=== PATIENT | female | born 1945 | race Caucasian/White ===

== ENCOUNTER 2021-11-11 14:34 | Outpatient (CLI) | payer MEDICARE, BC, SELFPAY ==
[2021-11-11 16:16] LABS: Chloride* 106 mmol/L (96-114)
[2021-11-11 16:17] LABS: Albumin* 4.5 g/dL (3.3-5.0); Potassium* 4.2 mmol/L (3.6-5.1); Sodium* 138 mmol/L (135-149)
[2021-11-11 16:20] LABS: Alanine Aminotransferase* 26 U/L (4-35); Alkaline Phosphatase* 88 U/L (40-150); Aspartate Amino Transferase* 50 U/L (12-35); Bilirubin Total* 0.3 mg/dL (0.1-1.5); Blood Urea Nitrogen* 20 mg/dL (7-30); Carbon Dioxide* 28 mmol/L (20-32); Creatinine* 0.8 mg/dL (0.5-1.5); Estimated Glomerular Filt Rate 77 ml/min; Glucose* 87 mg/dL (60-115); Total Protein* 7.7 g/dL (6.0-8.3)
[2021-11-11 16:21] LABS: Calcium* 9.5 mg/dL (8.4-10.6)
[2021-11-11 17:10] LABS: Vitamin B12* 741 pg/mL (243-894)
== END 2021-11-11 14:35 | disposition home or self-care (01) ==
PROVIDERS: PCP Internal Medicine; Visit Provider Internal Medicine
DX: R41.3 Other amnesia (principal); E78.5 Hyperlipidemia, unspecified; R41.89 Other symptoms and signs involving cognitive functions and awareness; M85.80 Other specified disorders of bone density and structure, unspecified site; Z13.29 Encounter for screening for other suspected endocrine disorder; Z13.21 Encounter for screening for nutritional disorder
CPT/HCPCS: 80053; 82607; 84443

== ENCOUNTER 2021-11-27 08:07 | Outpatient (CLI) | payer MEDICARE, BC, SELFPAY ==
--- OUTSIDE RECORDS SUMMARY | 2021-11-27 08:10 | XMS_ITS | Clinical Summary ---
:1945 Author Organization [facility] Address [address] [place] [address] Care Team Providers Name Role Phone Unavailable Primary Care Provider Unavailable Source Comments Patient records contain information from all sites at [facility]. For routine questions regarding patient records, call [phone] during business hours, M-F 8:00 AM - 5:00 PM Central Time. Record requests for emergency care only can be directed to [phone] at any time.[facility] Allergies No known active allergies Medications Medication Sig Dispensed Refills Start Date End Date Status alendronate (FOSAMAX) Take by mouth 1 09/20/2017 Active 35 mg tablet once a week. multivitamin tablet Take 1 tablet by 0 Active mouth daily. simvastatin (ZOCOR) 10 Take 20 mg by 0 04/19/2021 Active mg tablet mouth daily. amLODIPine (NORVASC) Take 2.5 mg by 0 04/22/2021 Active 2.5 mg tablet mouth daily. atorvastatin (LIPITOR) Take 20 mg by 0 11/13/2021 Active 20 mg tablet mouth at bedtime. Active Problems No known active problems Encounters Date Type Specialty Care Team Description 11/17/2021 Ancillary Procedure 11/17/2021 Office Visit Dermatology Cruzito Simon, Karel alvarado (Primary Dx); MFaustino. Keratosis Sebor rheic from Last 3 Months Family History Medical History Relation Name Comments Kidney cancer Brother Mike Escobar 07/2009 at 61 years old Parkinsonism Father Jv Escobar : 04/07 12; 90 years old Breast cancer Mother's Sister Mary Nascimento approx. at 80 ye ars old Basal cell carcinoma Other son Basal cell carcinoma Sister Relation Name Status Comments Brother Mike Escobar Father Jv Escobar Mother's Sister Mary Nascimento Other son Alive Sister Social History Tobacco Use Types Packs/Day Years Used Date Smoking Tobacco: Never Smokeless Tobacco: Never Alcohol Use Standard Drinks/Week Comments Yes 1 (1 standard drink = 0.6 oz pure alcoho l) Alcohol Habits Answer Date Recorded How often do you have a drink containing alcohol? Monthly or less 05/08/2021 How many drinks containing alcohol do you have on a 1 or 2 05/08/2021 typical day when you are drinking? How often do you have six or more drinks on one Never 05/08/2021 occasion? Comment: Not asked Social Isolation Answer Date Recorded In a typical week, how many times do you Twice a week 05/08/2021 talk on the phone with family, friends, or neighbors? How often do you get together with friends Twice a week 05/08/2021 or relatives? How often do you attend taoism or presybeterian More than 4 time s per year 05/08/2021 services? Do you belong to any clubs or organizations Yes 05/08/2021 such as taoism groups, unions, fraternal or athletic groups, or school groups? How often do you attend meetings of the More than 4 times pe r year 05/08/2021 clubs or organizations you belong to? Are you now , , , 05/08/2021 , never or living with a partner? Physical Activity Answer Date Recorded On average, how many days per week do you engage in moderate to 5 days 05/08/2021 strenuous exercise (like walking fast, running, jogging, dancing, swimming, biking, or other activities that cause a light or heavy sweat)? On average, how many minutes do you engage in exercise at th is 50 min 05/08/2021 level? Stress Answer Date Recorded Do you feel stress - tense, restless, nervous, or anxious, N ot at all 05/08/2021 or unable to sleep at night because your mind is troubled all the time - these days? Financial Resource Strain Answer Date Recorded How hard is it for you to pay for the very basics like Not h lalo at all 05/08/2021 food, housing, medical care, and heating? Intimate Partner Violence Answer Date Recorded Within the last year, have you been afraid of your partner o r No 05/08/2021 ex-partner? Within the last year, have you been humiliated or emotionall y No 05/08/2021 abused in other ways by your partner or ex-partner? Within the last year, have you been kicked, hit, slapped, or No 05/08/2021 otherwise physically hurt by your partner or ex-partner? Within the last year, have you been raped or forced to have any No 05/08/2021 kind of sexual activity by your partner or ex-partner? Food Insecurity Answer Date Recorded Within the past 12 months, you worried that your food would Never true 05/08/2021 run out before you got money to buy more. Within the past 12 months, the food you bought just didn't N ever true 05/08/2021 last and you didn't have money to get more. Transportation Needs Answer Date Recorded In the past 12 months, has lack of transportation kept you f rom No 05/08/2021 medical appointments or from getting medications? In the past 12 months, has lack of transportation kept you f rom No 05/08/2021 meetings, work, or getting things needed for daily living? Housing Stability Answer Date Recorded In the last 12 months, was there a time when you were not ab le No 05/08/2021 to pay the mortgage or rent on time? In the last 12 months, how many places have you lived? 1 05/08/2021 In the last 12 months, was there a time when you did not hav e a No 05/08/[address] or slept in a fpc (including now)? Education Answer Date Recorded What is the highest level of school Master's degree (e.g., M A, MS, 09/01/2019 you have completed or the highest Ralph, MEd, PACKAGER HAND, ROCIO) degree you have received? Sex Assigned at Date Recorded Female 09/01/2019 10:42 AM CDT Last Filed Vital Signs Vital Sign Reading Time Taken Comments Blood Pressure 168/86 01/13/2021 10:00 AM CDT Pulse 77 01/13/2021 10:00 AM CDT Temperature - - Respiratory Rate - - Oxygen Saturation - - Inhaled Oxygen Concentration - - Weight - - Height - - Body Mass Index - - Plan of Treatment Health Maintenance Due Date Last Done Comments Bone Density Scan (Osteoporosis 1945 Screen) CT Colonography 1945 Cologuard 1945 Colonoscopy 1945 Colorectal Cancer Surveillance 1945 Fasting Glucose for Diabetes 1945 Screening Hepatitis C Screening 1945 Mammogram 1945 Depression Screening (Annual 04/19/2021 PHQ-2) Fall Risk Screen (Annual) 04/19/2021 Influenza Vaccine (#1) 2022 12/22/2020, 12/28/2019, 01/08/2019, Additional history exists DTaP,Tdap,and Td Vaccines (2 - Td 01/12/2027 01/12/2017, or Tdap) Pneumococcal vaccine (65+ years) Completed 12/18/2014, 09/2012 Zoster Vaccines Completed 01/02/2019, 10/18/2018, 06/20/2008 COVID-19 Vaccine Completed 07/23/2021, 02/11/2021, 07/05/2020, Additional history exists Procedures Procedure Name Priority Date/Time Associated Comments Diagnosis DERMATOLOGY IMAGE Routine 11/17/2021 4:18 PM Resu lts for this EXAM CDT procedure are i n the results section. from Last 3 Months Results cheek, left upper 13-Dermatology Image Exam (11/17/2021 4:18 PM CDT) Specimen (Source) Anatomical Collection Method Collection Time Re ceived Time Location / / Volume Laterality 11/17/2021 4:16 PM CDT Narrative I[facility]S - 11/17/2021 4:18 PM CDT This order has been created and auto-finalized to support the import of images acquired without order. The clini jeison documentation to support these images can be found on the encounter deni t produced images. Provider Not In System IMG NON RAD IMAGING PROCEDUR ES Performing Organization Address City/State/ZIP Code Phon e Number IIMS IIMS NA from Last 3 Months Insurance Payer Benefit Plan / Subscriber ID Effective Phone Address T ype Group Dates MEDICARE MEDICARE A AND [id number] 2011-Pres [address] [place] [address] BLUE CROSS BCBS [place] [id number] 2016-Pres [phone] [address] Cost Share BLUE SHIELD BLUE COST 1 ent [phone] [place] [address] MEDICA MEDICA PRIME [id number] 2017-Pres [phone] [address] Cos t Share SOLUTIONS COST ent [phone] [place] [address] (Work) [phone]
--- OUTSIDE RECORDS SUMMARY | 2021-11-27 08:10 | XMS_ITS | Encounter Summary ---
:1945 Author Organization [facility] Address [address] [place] [id number] Care Team Providers Name Role Phone Unavailable Primary Care Provider Unavailable Encounter Details Date Type Department Care Team Description 11/17/2021 Ancillary Procedure Department of Dermatology Social History Tobacco Use Types Packs/Day Years [...] or relatives? How often do you attend latter day or christianity More than 4 time s per year 05/08/2021 services? Do you belong to any clubs or organizations Yes 05/08/2021 such as latter day groups, unions, fraternal or athletic groups, or [...] minutes do you engage in exercise at is 50 min 05/08/2021 level? Stress Answer [...] place to sleep or slept in a detention (including now)? Education Answer Date Recorded What is the highest level of school Master's degree (e.g., M A, MS, 09/01/2019 you have completed or the highest Ralph, MEd, GLUE MOUNTER OPERATOR, ROCIO) degree you have received? Sex Assigned at Date Recorded Female 09/01/2019 10:42 AM CDT documented as of this encounter Plan of Treatment Not on filedocumented as of this encounter Procedures Procedure Name Priority Date/Time Associated Comments Diagnosis DERMATOLOGY IMAGE Routine 11/17/2021 4:18 PM Resu lts for this EXAM CDT procedure are i n the results section. documented in this encounter Results cheek, left upper 13-Dermatology Image Exam [...] Code Phon e Number IIMS IIMS NA documented in this encounter Visit Diagnoses Not on filedocumented in this encounter
--- OUTSIDE RECORDS SUMMARY | 2021-11-27 08:11 | XMS_ITS | Encounter Summary ---
:1945 Author Organization [facility] Address [address] [place] [address] Care Team Providers Name Role Phone Unavailable Primary Care Provider Unavailable Encounter Details Date Type Department Care Team Description 11/29/2020 Orders Only Department of Sidney Rice, Squamous Cell Dermatology in M.D. Carcinoma Skin Other [place], [place] [address] [facility] Face (Primary [address] [place], [place] Dx) [place] [id number] [phone] Social History Tobacco Use Types Packs/Day Years [...] or relatives? How often do you attend gnosticism or anabaptist More than 4 time s per year 05/08/2021 services? Do you belong to any clubs or organizations Yes 05/08/2021 such as gnosticism groups, unions, fraternal or athletic groups, or school groups? How often do you attend meetings of the More than 4 times pe magdiel year 05/08/2021 clubs or organizations you belong [...] place to sleep or slept in a [place] [facility] [place] (including now)? Education Answer Date Recorded What is the highest level of school Master's degree (e.g., M A, MS, 09/01/2019 you have completed or the highest Ralph, MEd, ELECTRICAL ASSEMBLER, ROCIO) degree you have received? Sex Assigned at Date Recorded Female 09/01/2019 10:42 AM CDT documented as of this encounter Plan of Treatment Not on filedocumented as of this encounter Results SARS Coronavirus-2 RNA, V Asymptomatic (01/10/2021 1:13 PM CDT) [facility] Method Time Signature SARS-CoV-2 Swab, 01/11/2021 MKTO Specimen Nasopharynx 2:34 AM CDT Source SARS CoV-2 Undetected Undetected 01/11/2021 MKTO RNA, TMA 2:34 AM CDT Comment: SARS-CoV-2 RNA absent. This result does not rule out COVID-19 in the patient, as the sensitivity of the test depends o n the timing of the specimen collection and the quality of the specim en. Result should be correlated with patient's history and clinical presentat ion. ----ADDITIONAL INFORMATION---- This molecular amplification test was pe rformed using the Aptima SARS-CoV-2 assay ([employer] on the [employer] tem under emergency use authorization (EUA) by the U.S. Food and Drug Administ ration. Fact sheets for this EUA assay can be fo und at the following links: For Healthcare Providers: https://www.fd a.gov/media/417560/download For Patients: https://www.fda.gov/media/ 393517/download Specimen Anatomical Collection Method Collection Time Receive d Time (Source) Location / / Volume Laterality Varies 01/10/2021 1:13 PM 09/24/202 1 7:38 (Nasopharynx) CDT PM CDT Sidney Rice M.D. 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
--- OUTSIDE RECORDS SUMMARY | 2021-11-27 08:11 | XMS_ITS | Encounter Summary ---
:1945 Author Organization [facility] Address [address] [place] [address] Care Team Providers Name Role Phone Unavailable Primary Care Provider Unavailable Reason for Visit Reason Comments Skin Check Outpatient (Routine) - Closed Specialty Diagnoses / Procedures Referred By Contact Refer red To Contact Dermatology Cruzito Simon M.D . [facility] Region [address] [place] [phone] Referral ID Status Reason Start Date Expiration Date Visits Requ ested Visits Authorized [id number] Closed 09/05/2019 09/04/2020 1 1 Encounter Details Date Type Department Care Team Description 12/18/2019 Office Visit Department of Cruzito Simon, Keratosis Seborrheic (Primary Dx); Dermatology in [place] Nevi Multiple; [place], [place] [address] [place] [address] Keratosis Actinic; [address] [place] [address] [place] [phone] Social History Tobacco Use Types Packs/Day Years [...] or relatives? How often do you attend cheondoism or temple More than 4 time s per year 05/08/2021 services? Do you belong to any clubs or organizations Yes 05/08/2021 such as cheondoism groups, unions, fraternal or athletic groups, or [...] place to sleep or slept in a long-term (including now)? Education Answer Date Recorded What is the highest level of school Master's degree (e.g., M A, MS, 09/01/2019 you have completed or the highest Ralph, MEd, MAKE UP GIRL, ROCIO) degree you have received? Sex Assigned at Date Recorded Female 09/01/2019 10:42 AM CDT documented as of this encounter Progress Notes Cruzito Simon M.D. - 12/18/2019 8:15 AM CDT SUBJECTIVE CHIEF COMPLAINT / REASON FOR VISIT Skin cancer screening exam Recheck of dermal nevus involving the left upper sharonda lip HISTORY OF PRESENT ILLNESS Ms. Susie Suarez is a 74 y.o. female who presents today for a full skin cancer screening examination and a recheck of dermal nevus. On her last visit with me on 09/05/19 we followed up with a recheck of a dermal nevus involving the left upper sharonda border which I suspected was benign but witha low suspicion for a basal cell carcinoma. She reports no changes in this lesion since the last visit .The patient denies a personal history of skin cancer. She does have history of her sister with melanoma and father with non melanoma skin cancer. She reports regular use of sunscreen. No Known Allergies MEDICAL HISTORY No history of skin cancer FAMILY HISTORY 1. Sister with history of melanoma 2. Father with history of non melanoma skin cancer, probable bcc OBJECTIVE PHYSICAL EXAMINATION General: Awake, alert, in no acute distress, and with appropriate affect. Eyes: No scleral injection or icterus. No eyelid abnormalities. Lymph: No lower extremity edema. Skin: I have examined the scalp, face, neck, chest, abdomen, back, bilateral upper extremities, and bilateral lower extremities. My scribe Abril was present for the full exam today. Examination of the right forehead reveals 2 AKs.Examination of the right crooks reveals an irritated LK. Examination of area above the left lip reveals a 4 x 3 mm flesh colored, to light brown nevus with ahair growing out of it compatible with a benign dermal nevus. Examination of face, trunk, and extremities reveals multiple benign appearing nevi and lentigines and several Sks, to a greater extent on trunk than extremities. ASSESSMENT / PLAN #1 Right forehead: Multiple actinic keratosis x 2 lesions Given the precancerous nature of this lesion(s), treatment is medically indicated. After discussion of the risks, benefits and alternatives to treatment with cryotherapy, informed consent was obtained.We treated a total of 2 lesion(s) with two 5-10-second freeze-thaw cycles of liquid nitrogen cryother apy. The patient tolerated the procedure well. Aftercare instructions were provided in written and verbal form to the patient. Should any of these lesions recur, the patient should return for biopsy orfurther evaluation. Discussed the risks, benefits, alternatives, and the necessity of other members of the healthcare team participating in the procedure. All questions answered and consent given. #2 Right crooks: Irritated lichenoid keratosis Due to the irritated nature of this lesion I recommended further treatment with cryotherapy and she agreed to proceed. After explaining the procedure, discussing the associated risks, benefits, and alternatives, and obtaining verbal informed consent, the lesion(s) underwent treatment with cryotherapy in the standard fashion.We treated a total of 1 lesion(s) with two 5-10 second freeze-thaw cycles of liquid nitrogen cry otherapy. The patient tolerated the procedure well. Aftercare instructions were provided in written and verbal form to the patient. Should any of these lesions recur, the patient should return for biopsy or further evaluation. Discussed the risks, benefits, alternatives, and the necessity of other members of the healthcare team participating in the procedure. All questions answered and consent given. Patient offered educational materials. Follow-up immediately if changes occur during monthly self-skin exam. Otherwise follow up in 6-12 months. #3 Face, trunk, and extremities: Multiple benign appearing nevi and lentigines The ABCDE criteria for melanoma was reviewed with the patient. None of the patient's nevi reach the clinical threshold for biopsy. I recommend continued sun protection, self-skin examinations, and observation. Should any of the patient's nevi change in size, color, texture, or shape or develop symptoms such as itching or bleeding, I recommend an immediate return visit for reassessment. #4 Face, trunk, and extremities, to a greater extent the trunk: Seborrheic keratosis The benign nature of the skin lesion(s) was discussed with the patient. No treatment is required. I recommend continued observation. Should symptoms or changes develop related to this condition, I would recommend a return visit for reassessment. PATIENT EDUCATION: Ready to learn. No apparent learning barriers were identified. Learning preferences include listening. Explained diagnosis and treatment plan; patient/guardian of patient expressed understanding of thecontent. By signing my name below, I, Carrie Waldron, attest that this documentation has been prepared underthe direction and in the presence of Cruzito Simon M.D. Electronically Signed: ethel Arellano. 12/18/2019. At 0837 . I, Cruzito Simon M.D., personally performed the services described in this documentation. All medical record entries made by the scribe were at my direction and in my presence. I have reviewed the chart and discharge instructions (if applicable) and agree that the record reflects my personal performance and is accurate and complete. Cruzito Simon M.D. 12/18/2019. documented in this encounter Plan of Treatment Not on filedocumented as of this encounter Visit Diagnoses Diagnosis Keratosis Seborrheic - Primary Nevi Multiple Keratosis Actinic Keratosis Lichenoid documented in this encounter
--- OUTSIDE RECORDS SUMMARY | 2021-11-27 08:11 | XMS_ITS | Encounter Summary ---
:1945 Author Organization [facility] Address [address] [place] [address] Care Team Providers Name Role Phone Unavailable Primary Care Provider Unavailable Encounter Details Date Type Department Care Team Description 01/10/2021 Lab Department of [facility] Sidney Rice Sq uamous Cell Carcinoma [facility], in [address] [phone] [place] [address] [facility] [phone] Social History Tobacco Use Types Packs/Day Years [...] or relatives? How often do you attend judaism or druze More than 4 time s per year 05/08/2021 services? Do you belong to any clubs or organizations Yes 05/08/2021 such as judaism groups, unions, fraternal or athletic groups, or [...] place to sleep or slept in a fdc (including now)? Education Answer Date Recorded What is the highest level of school Master's degree (e.g., M A, MS, 09/01/2019 you have completed or the highest Ralph, MEd, CENTRAL SUPPLY NURSE, ROCIO) degree you have received? Sex Assigned at Date Recorded Female 09/01/2019 10:42 AM CDT documented as of this encounter Plan of Treatment Not on filedocumented as of this encounter Procedures Procedure Name Priority Date/Time Associated Diagnosis Comme nts SARS CORONAVIRUS-2 Routine 01/10/2021 1:13 PM Squamous Cell Re sults for this RNA, V CDT Carcinoma Skin Other procedu re are in Parts Face the results section. documented in this encounter Results SARS Coronavirus-2 RNA, V Asymptomatic (01/10/2021 1:13 PM CDT) [facility] Method Time Signature SARS-CoV-2 Swab, 01/11/2021 MKTO [...] pe rformed using the Aptima SARS-CoV-2 assay ([employer] on the [employer] tem under emergency use authorization (EUA) by the U.S. Food and Drug Administ ration. Fact sheets for this EUA assay can be fo und at the following links: For Healthcare Providers: https://www.fd a.gov/media/692398/download For Patients: https://www.fda.gov/media/ 978080/download Specimen Anatomical Collection Method Collection Time Receive d Time (Source) Location / / Volume Laterality Varies 01/10/2021 1:13 PM 7:38 (Nasopharynx) CDT PM CDT Sidney Rice M.D. LAB MICROBIOLOGY - GENERAL O RDERABLES Performing Organization Address City/State/[facility] Phon e Number [facility]- [address] [place] [address] [place] [address] System [address] documented in this encounter Visit Diagnoses Diagnosis Squamous Cell Carcinoma Skin Other Parts Face documented in this encounter Additional Health Concerns Infection Onset Date Last Indicated Resolved Time COVID19 Pending 01/09/2021 01/10/2021 01/11/2021 2:35 AM CDT documented as of this encounter
--- OUTSIDE RECORDS SUMMARY | 2021-11-27 08:11 | XMS_ITS | Encounter Summary ---
:1945 Author Organization [facility] Address [address] [place] [address] Care Team Providers Name Role Phone Unavailable Primary Care Provider Unavailable Reason for Referral Outpatient (Routine) - Closed Specialty Diagnoses / Procedures Referred By Contact Refer red To Contact Dermatology Diagnoses Squamous Cell Carcinoma In Situ Cruzito Simon M.D. [facility] Procedures [facility] 1-4 sites [address] [place] [address] [phone] Referral ID Status Reason Start Date Expiration Date Visits Requ ested Visits Authorized [id number] Closed 11/25/2020 11/25/2021 1 1 Encounter Details Date Type Department Care Team Description 11/25/2020 Orders Only Department of Cruzito Simon Encounter For Preprocedural Laboratory Examination (COVID-19) (Primary Dx); Dermatology ashanti Alegria M.D. Squamous Cell Carcinoma In Situ; [place], [place] [address] [place] [address] Contact With And (Suspected) Exposure To COVID-[address] [place] [phone] Social History Tobacco Use Types Packs/Day Years [...] or relatives? How often do you attend caodaism or yazidism More than 4 time s per year 05/08/2021 services? Do you belong to any clubs or organizations Yes 05/08/2021 such as caodaism groups, unions, fraternal or athletic groups, or [...] place to sleep or slept in a usp (including now)? Education Answer Date Recorded What is the highest level of school Master's degree (e.g., M A, MS, 09/01/2019 you have completed or the highest Ralph, MEd, DIRECTOR GEOPHYSICAL LABORATORY, ROCIO) degree you have received? Sex Assigned at Date Recorded Female 09/01/2019 10:42 AM CDT documented as of this encounter Plan of Treatment Scheduled Orders Name Type Priority Associated Diagnoses Order S noel [facility] 1-4 sites Dermatology Routine Squamous Cell Carcinom a Expected: 12/09/2020, In Situ Expires: 2023 documented as of this encounter Visit Diagnoses Diagnosis Encounter For Preprocedural Laboratory E xamination (COVID-19) - Primary Squamous Cell Carcinoma In Situ Contact With And (Suspected) Exposure To COVID-19 documented in this encounter
--- OUTSIDE RECORDS SUMMARY | 2021-11-27 08:11 | XMS_ITS | Encounter Summary ---
:1945 Author Organization [facility] Address [address] [place] [address] Care Team Providers Name Role Phone Unavailable Primary Care Provider Unavailable Encounter Details Date Type Department Care Team Description 01/13/2021 Ancillary Procedure Department of Dermatology Social History [...] or relatives? How often do you attend yazdanism or restorationism More than 4 time s per year 05/08/2021 services? Do you belong to any clubs or organizations Yes 05/08/2021 such as yazdanism groups, unions, fraternal or athletic groups, or [...] level of school Master's degree (e.g., M Disha, MS, 09/01/2019 you have completed or the highest Ralph, MEd, MANAGER TRAINING, ROCIO) degree you have received? Sex Assigned at Date Recorded Female 09/01/2019 10:42 AM CDT documented as of this encounter Plan of Treatment Not on filedocumented as of this encounter Procedures Procedure Name Priority Date/Time Associated Comments Diagnosis DERMATOLOGY IMAGE Routine 01/13/2021 11:44 Result s for this EXAM AM CDT procedure are i n the results section. documented in this encounter Results Forehead, right 8 Mohs micrographic surgery-Dermatology Image Exam (01/13/2021 11:44 AM CDT) Specimen (Source) Anatomical Collection Method Collection Time Re ceived Time Location / / Volume Laterality 01/13/2021 12:00 PM CDT Narrative [facility] - 01/13/2021 11:44 AM CDT This order has been created and [...]
--- OUTSIDE RECORDS SUMMARY | 2021-11-27 08:11 | XMS_ITS | Encounter Summary ---
:1945 Author Organization [facility] Address [address] [place] [address] Care Team Providers Name Role Phone Unavailable Primary Care Provider Unavailable Reason for Referral Outpatient (Routine) - Closed Specialty Diagnoses / Procedures Referred By Contact Refer red To Contact Dermatology Cruzito Simon M.D . [facility] Region [address] [place] [phone] Referral ID Status Reason Start Date Expiration Date Visits Requ ested Visits Authorized [id number] Closed 06/20/2019 06/19/2020 1 1 Scheduling Instructions Return for potential shave biopsy lip July 17 1:00 p.m. SPORTATION AID Reason for Visit Reason Comments Skin Check Appointment Request (Routine) - Closed Specialty Diagnoses / Procedures Referred By Contact Refer red To Contact Dermatology Referral ID Status Reason Start Date Expiration Date Visits Requ ested Visits Authorized [id number] Closed 12/21/2018 12/21/2019 1 Encounter Details Date Type Department Care Team Description 06/20/2019 Office Visit Department of Cruzito Simon Nevi Multi ple (Primary Dx); Dermatology in [place], [place] [address] [place] [phone] Social History Tobacco Use Types Packs/Day Years Used Date Smoking Tobacco: Never Smokeless Tobacco: Never Alcohol Habits Answer Date Recorded How often [...] or relatives? How often do you attend gnosticist or catholic More than 4 time s per year 05/08/2021 services? Do you belong to any clubs or organizations Yes 05/08/2021 such as gnosticist groups, unions, [email or web address] or athletic groups, or school groups? How [...] place to sleep or slept in a fci (including now)? Sex Assigned at Date Recorded Female 09/01/2019 10:42 AM CDT documented as of this encounter Progress Notes Cruzito Simon M.D. - 06/20/2019 3:00 PM CST SUBJECTIVE CHIEF COMPLAINT/REASON FOR VISIT Recheck nevi involving left upper posterior thigh and left lateral thigh HISTORY OF PRESENT ILLNESS Susie Suarez is a 73 y.o. female who presents for a recheck of nevi involving the left upper posterior thigh and left lateral thigh. These lesions have been non-changing and asymptomatic. The patient denies a personal history of skin cancer or family history for melanoma. She uses sunscreen. She has no other concerns today. No Known Allergies MEDICAL HISTORY Negative for skin cancer FAMILY HISTORY Negative for melanoma OBJECTIVE PHYSICAL EXAMINATION General: Awake, alert, in no acute distress, and with appropriate affect. Skin: Examination of the left upper posterior thigh reveals a 5 mm x 3 mm brown nevus with slight asymmetry . Examination of the left lateral thigh reveals a 4 mm x 3.5 mm brown nevus with slight asymmetry. Examination of the left upper lip (sharonda border) reveals a 4 mm x 3 mm skin-colored to slightly shiny papule with some telangiectasia, likely representing a dermal nevus although cannot completely exclude a basal cell carcinoma. The patient thinks this lesion has been present for a long timebut is unsure. ASSESSMENT/PLAN #1 Left upper posterior thigh and left lateral thigh: Benign nevi The ABCDE criteria for melanoma was reviewed with the patient. These nevi do not reach the clinical threshold for biopsy. I recommend continued sun protection, self-skin examinations, and observation. Should these nevi change in size, color, texture, or shape or develop symptoms such as itching or bleeding, I recommend an immediate return visit for reassessment. Follow up in 3 months for a full skin cancer screening, or immediately if any new or changing lesions are noted. #2 Left upper lip (sharonda border): Probable dermal nevus, cannot exclude basal cell carcinoma On clinical exam, the lesion involving the left upper lip (sharonda border) likely represents a dermal nevus although I cannot entirely exclude a basal cell carcinoma. The patient thinks this lesion has been present for a long time but is unsure. I have asked her to review previous family photos that she has at home to verify. I advised a return to the procedure clinic on 07/18/19 for recheck of thestated lesion and a potential biopsy only if indicated after review of her home photos. Photographs were taken today with the patient's verbal consent. PATIENT EDUCATION: Ready to learn. No apparent learning barriers were identified. Learning preferences include listening. Explained diagnosis and treatment plan; patient/guardian of patient expressed understanding of thecontent. By signing my name below, I, Jose L Shahid, attest that this documentation has been prepared under thedirection and in the presence of Cruzito Simon M.D. Electronically Signed: ethel Mariano. 06/20/2019. 3:18 PM TRANSPORTATION AID. Cruzito Tobias M.D., personally performed the services described in this documentation. All medical record entries made by the scribe were at my direction and in my presence. I have reviewed the chart and discharge instructions (if applicable) and agree that the record reflects my personal performance and is accurate and complete. Cruzito Simon M.D. . 06/20/2019. 5:07 PM TRANSPORTATION AID. SPORTATION AID documented in this encounter Plan of Treatment Scheduled Referrals Name Type Priority Associated Order Schedule Diagnoses Dermatology office Outpatient Referral Routine Ex pected: visit (clinic) 07/18/2019 (Approximate), Expires: 06/19/2022 documented as of this encounter Visit Diagnoses Diagnosis Nevi Multiple - Primary Nevus Dermal documented in this encounter
--- OUTSIDE RECORDS SUMMARY | 2021-11-27 08:11 | XMS_ITS | Encounter Summary ---
:1945 Author Organization [facility] Address [address] [place] [address] Care Team Providers Name Role Phone Unavailable Primary Care Provider Unavailable Reason for Referral Outpatient (Routine) - Closed Specialty Diagnoses / Procedures Referred By Contact Refer red To Contact Dermatology Cruzito Simon M.D . [facility] Region [address] [place] [phone] Referral ID Status Reason Start Date Expiration Date Visits Requ ested Visits Authorized [id number] Closed 01/30/2020 01/29/2021 1 1 Scheduling Instructions Recheck lip lesion and potential biopsy March 26, 11:15 a.m. Reason for Visit Reason Comments Suspicious Skin Lesion Encounter Details Date Type Department Care Team Description 01/30/2020 Office Visit Department of Dermatology Cruzito Simon , Nevus (Primary Dx) in [place] M.D. [address] [phone] Social History Tobacco Use Types Packs/Day Years [...] or relatives? How often do you attend mu-ism or jain More than 4 time s per year 05/08/2021 services? Do you belong to any clubs or organizations Yes 05/08/2021 such as mu-ism groups, unions, fraternal or athletic groups, or [...] place to sleep or slept in a senior care (including now)? Education Answer Date Recorded What is the highest level of school Master's degree (e.g., M Disha, MS, 09/01/2019 you have completed or the highest Ralph, MEd, BLACKSMITH HAMMER OPERATOR, ROCIO) degree you have received? Sex Assigned at Date Recorded Female 09/01/2019 10:42 AM CDT documented as of this encounter Progress Notes Cruzito Simon M.D. - 01/30/2020 10:30 AM CDT SUBJECTIVE CHIEF COMPLAINT / REASON FOR VISIT Skin lesion HISTORY OF PRESENT ILLNESS Ms. Susie Suarez is a 74 y.o. female who presents today for evaluation of a skin lesion involving the left lip. The patient denies a history of skin cancer but does have a sister with a history ofmelanoma and father with a history of non melanoma skin cancer. Today she states that the lesion involving the left lip has been present for about a year. Since thelast visit to dermatology clinic on 12/18/2019, she notices that the lesion has been increasingly dry and scaly. No Known Allergies MEDICAL HISTORY No history of skin cancer FAMILY HISTORY 1. Sister with history of melanoma 2. Father with history of non melanoma skin cancer, probable bcc OBJECTIVE PHYSICAL EXAMINATION General: Awake, alert, in no acute distress, and with appropriate affect. Skin: Limited skin exam done today. Examination of the skin just above the left sharonda border involving the left upper central lip area reveals a 3.5 x 3.5 mm skin colored to slightly pink papule with focal crust compatible with a dermal nevus that is irritated. Dermoscopy reveals comma shaped vessels also compatible with a dermal nevus. ASSESSMENT / PLAN #1 Skin above left central sharonda border (left upper cutaneous lip, central): Irritated dermal nevus Photographs taken today including clinical and dermoscopy photos. My index for suspicion for basal cell carcinoma is very low on clinical exam and dermoscopy today. Will continue to monitor clinically.For the crusting on the lip apply Vaseline to the area twice daily. Follow-up immediately if changesoccur during monthly self-skin exam. Otherwise follow up in 2 months. PATIENT EDUCATION: Ready to learn. No apparent learning barriers were identified. Learning preferences include listening. Explained diagnosis and treatment plan; patient/guardian of patient expressed understanding of thecontent. By signing my name below, I, Carrie Waldron, attest that this documentation has been prepared underthe direction and in the presence of Cruzito Simon M.D. Electronically Signed: ethel Arellano. 01/29. ICruzito M.D., personally performed the services described in this documentation. All medical record entries made by the scribe were at my direction and in my presence. I have reviewed the chart and discharge instructions (if applicable) and agree that the record reflects my personal performance and is accurate and complete. Cruzito Simon M.D. 01/29. documented in this encounter Plan of Treatment Scheduled Referrals Name Type Priority Associated Order Schedule Diagnoses Dermatology office Outpatient Referral Routine Ex pected: visit (clinic) 03/26/2020 (Approximate), Expires: 01/29/2023 documented as of this encounter Visit Diagnoses Diagnosis Nevus - Primary documented in this encounter
--- OUTSIDE RECORDS SUMMARY | 2021-11-27 08:11 | XMS_ITS | Encounter Summary ---
:1945 Author Organization [facility] Address [address] [place] [address] Care Team Providers Name Role Phone Unavailable Primary Care Provider Unavailable Reason for Referral Outpatient (Routine) - Closed Specialty Diagnoses / Procedures Referred By Contact Refer red To Contact Dermatology Cruzito Simon M.D . [facility] Region [address] [place] [address] [phone] Referral ID Status Reason Start Date Expiration Date Visits Requ ested Visits Authorized [id number] Closed 09/05/2019 09/04/2020 1 1 Scheduling Instructions Please schedule for skin cancer screenin g exam sometime in December 2019. Reason for Visit Reason Comments Follow-up Outpatient (Routine) - Closed Specialty Diagnoses / Procedures Referred By Contact Refer red To Contact Dermatology Cruzito Simon M.D . [facility] Region [address] [place] [phone] Referral ID Status Reason Start Date Expiration Date Visits Requ ested Visits Authorized [id number] Closed 06/20/2019 06/19/2020 1 1 Encounter Details Date Type Department Care Team Description 09/05/2019 Office Visit Department of Cruzito Simon Nevus Derm al (Primary Dermatology in [place] ) [address] [phone] Social History Tobacco Use Types Packs/Day Years [...] or relatives? How often do you attend roman catholic or gnosticist More than 4 time s per year 05/08/2021 services? Do you belong to any clubs or organizations Yes 05/08/2021 such as roman catholic groups, unions, fraternal or athletic groups, or [...] place to sleep or slept in a chcf (including now)? Education Answer Date Recorded What is the highest level of school Master's degree (e.g., M A, MS, 09/01/2019 you have completed or the highest Ralph, MEd, TRAFFIC OR SYSTEM DISPATCHER, ROCIO) degree you have received? Sex Assigned at Date Recorded Female 09/01/2019 10:42 AM CDT documented as of this encounter Consult Notes Cruzito Simon M.D. - 09/05/2019 8:45 AM CDT SUBJECTIVE CHIEF COMPLAINT / REASON FOR VISIT Skin lesion HISTORY OF PRESENT ILLNESS Ms. Susie Suarez is a 74 y.o. female who presents today for evaluation of a skin lesion involving the skin just above the left upper lip vermilion border. This lesion has been present for at least3 years that she found a photograph from where it was present and has not changed. We felt that it most likely represented a benign dermal nevus. She denies any bleeding or itching. The patientdenies a history of skin cancer. No Known Allergies MEDICAL HISTORY No history of skin cancer FAMILY HISTORY No family history for melanoma OBJECTIVE PHYSICAL EXAMINATION General: Awake, alert, in no acute distress, and with appropriate affect. Skin: Limited skin exam done today. Examination of the skin above the left upper lip vermilion border is a for by 3 mm slightly fernandes brown to skin colored papule with focal telangiectasia a a that is compatible on clinical exam and dermoscopy for a dermal nevus. ASSESSMENT / PLAN #1 Left upper lip vermilion border: Dermal nevus I discussed with her today that this lesion looks like a benign dermal nevus both clinically as wellas dermoscopy and has not changed for 3-4 years according to her. We discussed that these can sometimes mimic a basal cell carcinoma but my index of suspicion for this being a basal cell carcinoma is very low and I do not feel that a biopsy which would result in a scar is warranted at this time. She is in complete agreement with this approach. She will follow up in 4 months for recheck of this area as well as a full skin cancer screening exam as she will be due at that time. All questions answered. PATIENT EDUCATION: Ready to learn. No apparent learning barriers were identified. Learning preferences include listening. Explained diagnosis and treatment plan; patient/guardian of patient expressed understanding of thecontent. documented in this encounter Plan of Treatment Scheduled Referrals Name Type Priority Associated Order Schedule Diagnoses Dermatology office Outpatient Referral Routine Ex pected: visit (clinic) 01/15/2020 (Approximate), Expires: 09/04/2022 documented as of this encounter Visit Diagnoses Diagnosis Nevus Dermal - Primary documented in this encounter
--- OUTSIDE RECORDS SUMMARY | 2021-11-27 08:11 | XMS_ITS | Encounter Summary ---
:1945 Author Organization [facility] Address [address] [place] [phone] Care Team Providers Name Role Phone Unavailable Primary Care Provider Unavailable Encounter Details Date Type Department Care Team Description 08/22/2018 Ancillary Procedure Department of Dermatology Social History [...] or relatives? How often do you attend jewish or oriental orthodox More than 4 time s per year 05/08/2021 services? Do you belong to any clubs or organizations Yes 05/08/2021 such as jewish groups, unions, fraternal or athletic groups, or [...] place to sleep or slept in a correction (including now)? Sex Assigned at Date Recorded Female 09/01/2019 10:42 AM CDT documented as of this encounter Plan of Treatment Not on filedocumented as of this encounter Procedures Procedure Name Priority Date/Time Associated Comments Diagnosis DERMATOLOGY IMAGE Routine 08/22/2018 1:05 PM Resu lts for this EXAM CDT procedure are i n the results section. documented in this encounter Results lower extremity, left posterior thigh 409-Dermatology Image Exam (08/22/2018 1:05 PM CDT) Specimen (Source) Anatomical Collection Method Collection Time Re ceived Time Location / / Volume Laterality 08/22/2018 1:03 PM CDT Narrative [facility] - 08/22/2018 1:12 PM CDT This order has been created [...]
--- OUTSIDE RECORDS SUMMARY | 2021-11-27 08:11 | XMS_ITS | Encounter Summary ---
:1945 Author Organization [facility] Address [address] [place] [address] Care Team Providers Name Role Phone Unavailable Primary Care Provider Unavailable Reason for Visit Reason Comments Skin Check Appointment Request (Routine) - Closed Specialty Diagnoses / Procedures Referred By Contact Refer red To Contact Family Medicine Referral ID Status Reason Start Date Expiration Date Visits Requ ested Visits Authorized [id number] Closed 06/22/2018 06/22/2019 1 Encounter Details Date Type Department Care Team Description 12/20/2018 Office Visit Department of Cruzito Simon Nevi Multi ple (Primary Dx); Dermatology in [place], [place] [address] [place] [phone] Social History Tobacco Use Types Packs/Day Years [...] How often do you attend caodaism or druze More than 4 time s per year 05/08/2021 services? Do you belong to any clubs or organizations Yes 05/08/2021 such as caodaism groups, unions, fraternal or athletic groups, or school groups? How often do you attend meetings of the More than 4 times r year 05/08/2021 clubs or organizations you [...] place to sleep or slept in a halfway (including now)? Sex Assigned at Date Recorded Female 09/01/2019 10:42 AM CDT documented as of this encounter Progress Notes Cruzito Simon M.D. - 12/20/2018 2:00 PM CDT CHIEF COMPLAINT Skin cancer screening exam HISTORY OF THE PRESENT ILLNESS Susie Suarez is a pleasant 73 y.o. female who presents for a skin cancer screening exam. We have been monitoring two lesions involving the left upper posterior thigh and left lateral thigh since the initial consultation on 12/21/17. These were attributed to be benign nevi per previous clinical examand dermoscopy.The patient denies personal history of skin cancer or family history for melanoma. She uses sunscreen regularly. No new areas of concern today. PAST MEDICAL HISTORY No history of skin cancer FAMILY HISTORY No family history of melanoma PHYSICAL EXAM General: Awake, alert, in no acute distress, and with appropriate affect. Eyes: No scleral injection or icterus. No eyelid abnormalities. Lymph: No lower extremity edema. Skin: I have examined the scalp, face, neck, chest, abdomen, back, bilateral upper extremities, and bilateral lower extremities. Examination of the face reveals multiple benign-appearing nevi and seborrheic keratoses. Examination of the upper and lower extremities reveals multiple benign-appearing nevi and seborrheic keratoses. Examination of the right lateral big toe reveals a 5.5 mm x 3.5 mm uniformly pigmented brown benign-appearing nevus. Examination of the left upper posterior thigh 5 mm x 3 mmbrown nevus with slight irregular pigmentation, though benign-appearing by clinical exam and dermoscopy. Examination of the left lateral thigh reveals a 4 mm x 3.5 mm benign-appearing nevus with slightasymmetry. No suspicious lesions for skin cancer today. IMPRESSION AND PLAN #1 Face, trunk and extremities: Multiple nevi ?? The ABCDE criteria for melanoma was reviewed with the patient. None of the patient's nevi reach the clinical threshold for biopsy. We will continue monitoring the nevi involving the left upper posterior thigh and left lateral thigh. I recommend continued sun protection, self-skin examinations, and obse rvation. Should any of the patient's nevi change in size, color, texture, or shape or develop symptoms such as itching or bleeding, I recommend an immediate return visit for reassessment. Otherwise return in 6 months for recheck of her nevi discussed above. #2 Face, trunk and extremities: Seborrheic keratoses The benign nature of the skin lesion(s) was discussed with the patient. No treatment is required. I recommend continued observation. Should symptoms or changes develop related to this condition, I would recommend a return visit for reassessment. PATIENT EDUCATION Ready to learn. No apparent learning barriers were identified. Learning preferences include listening. Explained diagnosis and treatment plan; patient/guardian of patient expressed understanding of thecontent. By signing my name below, I, Jose L Shahid, attest that this documentation has been prepared under thedirection and in the presence of Cruzito Simon M.D. Electronically Signed: ethel Mariano. 12/20/2018. 2:10 PM. I, Cruzito Simon M.D., personally performed the services described in this documentation. All medical record entries made by the scribe were at my direction and in my presence. I have reviewed the chart and discharge instructions (if applicable) and agree that the record reflects my personal performance and is accurate and complete. Cruzito Simon M.D. . 12/20/2018. 3:48 PM. documented in this encounter Plan of Treatment Not on filedocumented as of this encounter Visit Diagnoses Diagnosis Nevi Multiple - Primary Keratosis Seborrheic documented in this encounter
--- OUTSIDE RECORDS SUMMARY | 2021-11-27 08:11 | XMS_ITS | Encounter Summary ---
:1945 Author Organization [facility] Address [address] [place] [address] Care Team Providers Name Role Phone Unavailable Primary Care Provider Unavailable Encounter Details Date Type Department Care Team Description 11/29/2020 Clinical Communication Department of Falguni Gibson Dermatology in , [place], [place] [address] [facility] [address] [place] [phone] Social History Tobacco Use Types Packs/Day Years [...] or relatives? How often do you attend orthodoxy or presybeterian More than 4 time s per year 05/08/2021 services? Do you belong to any clubs or organizations Yes 05/08/2021 such as orthodoxy groups, unions, fraternal or athletic groups, or [...] place to sleep or slept in a half-way (including now)? Education Answer Date Recorded What is the highest level of school Master's degree (e.g., M A, MS, 09/01/2019 you have completed or the highest Ralph, MEd, HOISTING ENGINE OPERATOR, ROCIO) degree you have received? Sex Assigned at Date Recorded Female 09/01/2019 10:42 AM CDT documented as of this encounter Miscellaneous Notes Telephone Encounter - Michelle Morales - 11/29/2020 11:54 AM CDT ----- Message from Falguni Gibson R.N. sent at 11/29/2020 10:53 AM CDT ----- Regarding: RE: Right forehead SCC HI Michelle, This is pretty superficial. Please offer her first available. Thank you, Falguni ----- Message ----- From: Michelle Morales Sent: 11/29/2020 9:58 AM CDT To: Dai Pererat Sunil Rogo Surg Charge Subject: Right forehead SCC Please advise on a date for this patient thank you documented in this encounter Plan of Treatment Not on filedocumented as of this encounter Visit Diagnoses Not on filedocumented in this encounter
--- OUTSIDE RECORDS SUMMARY | 2021-11-27 08:11 | XMS_ITS | Encounter Summary ---
:1945 Author Organization [facility] Address [address] [place] [address] Care Team Providers Name Role Phone Unavailable Primary Care Provider Unavailable Encounter Details Date Type Department Care Team Description 01/30/2020 Ancillary Procedure Department of Dermatology Social History [...] or relatives? How often do you attend yarsani or restorationism More than 4 time s per year 05/08/2021 services? Do you belong to any clubs or organizations Yes 05/08/2021 such as yarsani groups, unions, fraternal or athletic groups, or [...] place to sleep or slept in a group home (including now)? Education Answer Date Recorded What is the highest level of school Master's degree (e.g., M A, MS, 09/01/2019 you have completed or the highest Ralph, MEd, COMMUNICATION PROFESSOR, ROCIO) degree you have received? Sex Assigned at Date Recorded Female 09/01/2019 10:42 AM CDT documented as of this encounter Plan of Treatment Not on filedocumented as of this encounter Procedures Procedure Name Priority Date/Time Associated Comments Diagnosis DERMATOLOGY IMAGE Routine 01/30/2020 10:49 Result s for this EXAM AM CDT procedure are i n the results section. documented in this encounter Results lip, left upper cutaneous 29-Dermatology Image Exam (01/30/2020 10:49 AM CDT) Specimen (Source) Anatomical Collection Method Collection Time Re ceived Time Location / / Volume Laterality 01/30/2020 10:46 AM CDT Narrative [facility] - 01/30/2020 10:49 AM CDT This order has been created [...]
--- OUTSIDE RECORDS SUMMARY | 2021-11-27 08:11 | XMS_ITS | Encounter Summary ---
:1945 Author Organization [facility] Address [address] [place] [address] Care Team Providers Name Role Phone Unavailable Primary Care Provider Unavailable Reason for Visit Reason Comments Squamous Cell Carcinoma Outpatient (Routine) - Closed Specialty Diagnoses / Procedures Referred By Contact Refer red To Contact Dermatology Diagnoses Squamous Cell Carcinoma In Situ Cruzito Simon M.D. [facility] Procedures CRISTINA MOHS 1-[address] [place] [phone] Referral ID Status Reason Start Date Expiration Date Visits Requ ested Visits Authorized [id number] Closed 11/25/2020 11/25/2021 1 1 Encounter Details Date Type Department Care Team Description 01/13/2021 Procedure visit Department of Sidney Rice Squamo us Cell Dermatology in [place]. Carcinoma In Situ [place], [place] [address] [facility] [address] [place] [phone] Social History Tobacco Use Types Packs/Day Years [...] or relatives? How often do you attend samaritan or lutheran More than 4 time s per year 05/08/2021 services? Do you belong to any clubs or organizations Yes 05/08/2021 such as samaritan groups, unions, fraternal or athletic groups, or [...] have completed or the highest Ralph, MEd, PARENT TRAINER, ROCIO) degree you have received? Sex Assigned at Date Recorded Female 09/01/2019 10:42 AM CDT documented as of this encounter Last Filed Vital Signs Vital Sign Reading Time Taken Comments Blood Pressure 168/86 01/13/2021 10:00 AM CDT Pulse 77 01/13/2021 10:00 AM CDT Temperature - - Respiratory Rate - - Oxygen Saturation - - Inhaled Oxygen Concentration - - Weight - - Height - - Body Mass Index - - documented in this encounter Consult Notes Gaby Quiñonez M.D. - 01/13/2021 10:30 AM CDT Supervising systems security consultant: Dr. Rice CHIEF COMPLAINT/PURPOSE OF VISIT Treatment of squamous cell carcinoma in situ HISTORY OF THE PRESENT ILLNESS Susie Suarez is a 75 y.o. female who is referred by Cruzito Simon M.D. 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 Biopsy was performed 11/18/[address] Simon. Review of the pathology was notable as below FINAL DIAGNOSIS A. ??DermPath Consult Wet Tissue; Right forehead, Skin shave biopsy: ??Squamous cell carcinoma in situ, involving biopsy border The patient has no prior history of skin cancer. PAST MEDICAL HISTORY The dermatologic surgery preoperative sheet was reviewed as noted below: Pertinent positives include: Patient has a history of high blood pressure. No Heart disease/valve/murmur [x] Pacemaker [x] Defibrillator [x] Lung disease/COPD/Asthma [x] Liver disease [x] Stroke/Seizure/Dementia [x] Cancer (other than skin) [x] HBV/HCV/HIV [x] Diabetes [x] Organ Transplant [x] Bleeding or healing problems [x] High blood pressure [] Need abx prior to procedures [x] Hx of artificial joints [x] Hx of other implants [x] Other [x] Aspirin [x] Warfarin (Coumadin) [x] Plavix [x] Other blood thinners [x] Tobacco [x] Alcohol [x] / [x] No Known Allergies Vitals: 01/13/21 1000 BP: (!) 168/86 Pulse: 77 REVIEW OF SYSTEMS Patient denies fevers, chills, night sweats, unintended weight loss, lumps or bumps under the skin, or bone pain PHYSICAL EXAM General: Awake, alert, in no acute distress Skin: A limited skin examination was performed. Biopsy site noted over right forehead. IMPRESSION AND PLAN #1 Squamous cell carcinoma in situ, right forehead We reviewed the diagnosis(es)/indication(s) and treatment options including Mohs micrographic surgery, curettage and cryotherapy or field therapy with Efudex. We discussed the risks and benefits of each including scar, infection, bleeding with surgical options. We discussed the possible, although likely lower, risk of scarring with Efudex. We discussed the different known cure rates for the above options. We discussed the need for routine ongoing skin checks with a card grinder helper given her recent diagnosis of skin cancer. After discussing the above, patient agreed to trial of Efudex for 6 weeks. We discussed that signs of persistence and/or recurrence would include new/persistent scaling at the area or new lesion. Will plan to have the patient follow up in April for recheck of this area. Associated attestation - Sidney Rice M.D. - 01/17/2021 5:19 PM CDT I saw and evaluated the patient, participating in the loredo elements of the service. I discussed the findings, assessment and plan with the resident/fellow and agree with resident/fellow's findings and plan as documented in the resident/fellow's note. I was immediately available for the entirety of the p rocedure(s) and present for the loredo and critical portions. Electronically signed by: Sidney Rice M.D. 01/17/21 5:19 PM CDT documented in this encounter Plan of Treatment Not on filedocumented as of this encounter Visit Diagnoses Diagnosis Squamous Cell Carcinoma In Situ documented in this encounter
--- OUTSIDE RECORDS SUMMARY | 2021-11-27 08:11 | XMS_ITS | Encounter Summary ---
:1945 Author Organization [facility] Address [address] [place] [address] Care Team Providers Name Role Phone Unavailable Primary Care Provider Unavailable Reason for Visit Appointment Request (Routine) - Closed Specialty Diagnoses / Procedures Referred By Contact Refer red To Contact Dermatology Referral ID Status Reason Start Date Expiration Date Visits Requ ested Visits Authorized [id number] Closed 08/18/2021 08/18/2022 1 1 Encounter Details Date Type Department Care Team Description 11/17/2021 Office Visit Department of Cruzito Simon Nevi Multi ple (Primary Dx); [place]ermatology [place] [address] [phone] Social History Tobacco Use Types Packs/Day Years [...] or relatives? How often do you attend bahai or confucianism More than 4 time s per year 05/08/2021 services? Do you belong to any clubs or organizations Yes 05/08/2021 such as bahai groups, unions, fraternal or athletic groups, or [...] have completed or the highest Ralph, MEd, CASING PULLER, ROCIO) degree you have received? Sex Assigned at Date Recorded Female 09/01/2019 10:42 AM CDT documented as of this encounter Progress Notes Cruzito Simon M.D. - 11/17/2021 4:15 PM CDT SUBJECTIVE CHIEF COMPLAINT / REASON FOR VISIT Full skin cancer screening HISTORY OF PRESENT ILLNESS Susie Suarez is a pleasant 76 y.o. female who presents for a full skin cancer screening. The patient was last seen by me in Dermatology clinic on 05/12/21. She has a history of squamous cell carcinoma in situ involving the right forehead, status post treatment with Efudex cream prescribed on 01/13/[address] Rice at [facility]. She denies a personal history of melanoma. Her sister has a history for melanoma. She uses sunscreen. She denies any new or changing lesions today. MEDICAL HISTORY 1. Right forehead: History of squamous cell carcinoma in situ, status post treatment with Efudex cream prescribed on 01/13/[address] Rice at [facility] 2. Negative for melanoma FAMILY HISTORY 1. Sister with history of melanoma 2. Father with history of non melanoma skin cancer, probable basal cell carcinoma OBJECTIVE PHYSICAL EXAMINATION General: Awake, alert, in no acute distress, and with appropriate affect. Eyes: No scleral injection or icterus. No eyelid abnormalities. Lymph: No lower extremity edema. Skin: I have examined the scalp, face, neck, chest, abdomen, back, bilateral upper extremities, and bilateral lower extremities. My scribe (Leonor) served as a news videotape editor for the entirety of the exam. Examination of the right forehead reveals no evidence for recurrence of squamous cell carcinoma in situ x 1. Examination of the face, trunk and extremities reveals multiple benign-appearing nevi, lentigines and seborrheic keratoses. Examination of the left upper cheek reveals a 2.5 x 2.5 cm uniformly colored brown verrucous patch, compatible with seborrheic keratosis. Examination today reveals no suspicious lesions for skin cancer. ASSESSMENT / PLAN #1 Face, trunk and extremities: Multiple nevi and lentigines The ABCDE criteria for melanoma was reviewed with the patient. None of the patient's nevi reach the clinical threshold for biopsy. I recommend continued sun protection, self-skin examinations, and observation. Should any of the patient's nevi change in size, color, texture, or shape or develop symptoms such as itching or bleeding, I recommend an immediate return visit for reassessment. #2 Face, trunk and extremities: Seborrheic keratosis The benign nature of the skin lesion(s) was discussed with the patient. No treatment is required. I recommend continued observation. Should this lesion change in size, color, texture, or shape or develop symptoms such as itching or bleeding, I recommend an immediate return visit for reassessment. Particularly, we will continue to clinically monitor the lesion(s) involving the left upper cheek. Photographs taken today. Follow up in 6 months for a recheck of the stated lesion(s). #3 Right forehead: History of squamous cell carcinoma in situ, status post treatment with Efudex cream prescribed on 01/13/[address] Rice at [facility], no recurrence No clinical evidence of local recurrence today. Recommended monthly self-skin examinations to evaluate for new, changing, symptomatic, or otherwise worrisome lesions. Signs and symptoms of skin cancer discussed. Photoprotection was recommended. Return to Dermatology in 12 months for a full skin exam or immediately if any new or changing lesions are noted. PATIENT EDUCATION: Ready to learn. No apparent learning barriers were identified. Learning preferences include listening. Explained diagnosis and treatment plan; patient/guardian of patient expressed understanding of thecontent. By signing my name below, I, Leonor Chandler, attest that this documentation has been prepared under the direction and in the presence of Cruzito Simon M.D. Electronically Signed: ethel Keen. 11/11/2021. 12:14 PM CDT. I, Cruzito Simon M.D., personally performed the services described in this documentation. All medical record entries made by the scribe were at my direction and in my presence. I have reviewed the chart and discharge instructions (if applicable) and agree that the record reflects my personal performance and is accurate and complete. Cruzito Simon M.D. documented in this encounter Plan of Treatment Not on filedocumented as of this encounter Visit Diagnoses Diagnosis Nevi Multiple - Primary Keratosis Seborrheic documented in this encounter
--- OUTSIDE RECORDS SUMMARY | 2021-11-27 08:11 | XMS_ITS | Encounter Summary ---
:1945 Author Organization [facility] Address [address] [place] [address] Care Team Providers Name Role Phone Unavailable Primary Care Provider Unavailable Encounter Details Date Type Department Care Team Description 07/20/2019 Clinical Communication Department of Cruzito Simon, Dermatology in [place], [place] [address] [facility] [address] [place] [phone] Social History Tobacco Use Types Packs/Day Years [...] or relatives? How often do you attend jain or mormon More than 4 time s per year 05/08/2021 services? Do you belong to any clubs or organizations Yes 05/08/2021 such as jain groups, unions, fraternal or athletic groups, or [...] place to sleep or slept in a longterm (including now)? Sex Assigned at Date Recorded Female 09/01/2019 10:42 AM CDT documented as of this encounter Miscellaneous Notes Telephone Encounter - Cruzito Simon M.D. - 07/20/2019 10:34 AM CDT I called Mrs. Suarez and discussed the photo that she had sent in of a lesion just above her left upper lip. We had noted this lesion in clinic recently and felt that it represented most likely a dermalnevus, and she was unsure as to how long it had been there but thinks it was there a couple of years. She had not noticed any changes. She uploaded a photo that she found at home from May 2016 which she sent in and I reviewed, and it looked like the lesion was indeed present back then. It was hard given the distance in the photo to see if it had changed. Per her history, she feels it has not. Subsequently, I have asked her to follow up in Dermatology [facility] at [place] status post COVID-19 for further evaluation, and she has an appointment already scheduled in August, and hopefully we will beable to see her at that time. If it changes in the meantime, she will let me know. Otherwise, it is somewhat reassuring that the lesion has been present for a few years and has not changed, and our initial thought was that it represented a dermal nevus. She was very appreciative, and all questions answered. Cruzito Simon M.D. CT CT Job ID: [id number] documented in this encounter Plan of Treatment Not on filedocumented as of this encounter Visit Diagnoses Not on filedocumented in this encounter
--- OUTSIDE RECORDS SUMMARY | 2021-11-27 08:11 | XMS_ITS | Encounter Summary ---
:1945 Author Organization [facility] Address [address] [place] [address] Care Team Providers Name Role Phone Unavailable Primary Care Provider Unavailable Encounter Details Date Type Department Care Team Description 06/20/2019 Ancillary Procedure Department of Dermatology Social History [...] or relatives? How often do you attend holiness or jewish More than 4 time s per year 05/08/2021 services? Do you belong to any clubs or organizations Yes 05/08/2021 such as holiness groups, unions, fraternal or athletic groups, or [...] or slept in a usp (including now)? Sex Assigned at Date Recorded Female 09/01/2019 10:42 AM CDT documented as of this encounter Plan of Treatment Not on filedocumented as of this encounter Procedures Procedure Name Priority Date/Time Associated Comments Diagnosis DERMATOLOGY IMAGE Routine 06/20/2019 3:25 PM Resu lts for this EXAM FOSTER CARE THERAPIST procedure are i n the results section. documented in this encounter Results lip, left upper mucosal 31-Dermatology Image Exam (06/20/2019 3:25 PM FOSTER CARE THERAPIST) Specimen (Source) Anatomical Collection Method Collection Time Re ceived Time Location / / Volume Laterality 06/20/2019 3:22 PM FOSTER CARE THERAPIST Narrative [facility] - 06/20/2019 3:25 PM FOSTER CARE THERAPIST This order has been created and auto-finalized [...]
--- OUTSIDE RECORDS SUMMARY | 2021-11-27 08:11 | XMS_ITS | Encounter Summary ---
:1945 Author Organization [facility] Address [address] [place] [address] Care Team Providers Name Role Phone Unavailable Primary Care Provider Unavailable Reason for Visit Reason Comments Skin Check Appointment Request (Routine) - Closed Specialty Diagnoses / Procedures Referred By Contact Refer red To Contact Family Medicine Referral ID Status Reason Start Date Expiration Date Visits Requ ested Visits Authorized [id number] Closed 09/20/2017 09/20/2018 1 1 Encounter Details Date Type Department Care Team Description 12/21/2017 Office Visit Department of Cruzito Simon Nevi Multi ple (Primary Dx); Dermatology in [place], [place] [address] [phone] Social History Tobacco Use Types Packs/Day Years [...] or relatives? How often do you attend jehovah's witness or gnosticist More than 4 time s per year 05/08/2021 services? Do you belong to any clubs or organizations Yes 05/08/2021 such as jehovah's witness groups, unions, fraternal or athletic groups, or [...] encounter Progress Notes Cruzito Simon M.D. - 12/21/2017 2:00 PM CDT CHIEF COMPLAINT/REASON FOR VISIT Skin cancer screening exam HISTORY OF PRESENT ILLNESS Ms. Susie Suarez is a 72 y.o. female who presents today for a full skin cancer screening examination. The patient denies a history of skin cancer. She denies any personal or family history of melanoma. She uses sunscreen The patient denies any lesions of concern. During her last visit with me on 04/27/16 in [place], she had an 8-mm punch excision of an atypical appearing nevus from her right upper back. Dermatopathology showed this nevus was benign. No Known Allergies PAST MEDICAL HISTORY No history of skin cancer FAMILY HISTORY No family history for melanoma PHYSICAL EXAM General: Awake, alert, in no acute distress, and with appropriate affect. Eyes: No scleral injection or icterus. No eyelid abnormalities. Lymph: No lower extremity edema. Skin: I have examined the scalp, face, neck, chest, abdomen, back, bilateral upper extremities, and bilateral lower extremities. Examination of the face, trunk and extremities reveals several seborrheic keratoses and benign nevi. Examination of the left upper posterior thigh reveals a 5 mm x 3 mm brown nevus with slight asymmetry. Examination of the back reveals multiple seborrheic keratoses and benign nevi. No suspicious lesions for skin cancer today. IMPRESSION/REPORT/PLAN #1 Multiple nevi The ABCDE criteria for melanoma was reviewed with the patient. None of the patient's nevi reach the clinical threshold for biopsy. The one nevus on her left upper posterior thigh, noted above, with slight asymmetry, will be monitored closely. I recommend continued sun protection, self-skin examinations, and observation. Should any of the patient's nevi change in size, color, texture, or shape or develop symptoms such as itching or bleeding, I recommend an immediate return visit for reassessment. Otherwise return in 6 months for recheck of her left posterior thigh nevus and one year for a full skin cancer screening exam. Follow-up immediately if any changes are noted in any of her nevi. #2 Face, trunk, and extremities: Seborrheic Keratosis The benign nature of the skin lesion(s) [...] thecontent. By signing my name below, I, Harsha Parry, attest that this documentation has been prepared underthe direction and in the presence of Cruzito Simon M.D.. Electronically Signed: ethel Hazel. 12/21/2017. 2:27 PM . I, Cruzito Simon M.D., personally performed the services described in this documentation. All medical record entries made by the scribe were at my direction and in my presence. I have reviewed the chart and discharge instructions (if applicable) and agree that the record reflects my personal performance and is accurate and complete. Cruzito Simon M.D. . 12/21/2017. 2:36 PM. documented in this encounter Plan of Treatment Not on filedocumented as of this encounter Visit Diagnoses Diagnosis Nevi Multiple - Primary Keratosis Seborrheic documented in this encounter
--- OUTSIDE RECORDS SUMMARY | 2021-11-27 08:11 | XMS_ITS | Encounter Summary ---
:1945 Author Organization [facility] Address [address] [place] [address] Care Team Providers Name Role Phone Unavailable Primary Care Provider Unavailable Reason for Visit Reason Comments Skin Check Appointment Request (Routine) - Closed Specialty Diagnoses / Procedures Referred By Contact Refer red To Contact Referral ID Status Reason Start Date Expiration Date Visits Requ ested Visits Authorized [id number] Closed 07/17/2020 07/17/2021 1 1 Encounter Details Date Type Department Care Team Description 11/18/2020 Office Visit Department of Cruzito Simon, Tumor Skin Uncertain Behavior (Primary Dx); Dermatology in [place], [place] [address] [facility] Keratosis Seborrheic [address] [place] [phone] Social History Tobacco Use Types Packs/Day Years [...] or relatives? How often do you attend voodoo or zoroastrian More than 4 time s per year 05/08/2021 services? Do you belong to any clubs or organizations Yes 05/08/2021 such as voodoo groups, unions, fraternal or athletic groups, or [...] place to sleep or slept in a retirement (including now)? Education Answer Date Recorded What is the highest level of school Master's degree (e.g., M A, MS, 09/01/2019 you have completed or the highest Ralph, MEd, SERVICE DELIVERY SUPERVISOR, ROCIO) degree you have received? Sex Assigned at Date Recorded Female 09/01/2019 10:42 AM CDT documented as of this encounter Progress Notes Cruzito Simon M.D. - 11/18/2020 8:45 AM CDT SUBJECTIVE CHIEF COMPLAINT / REASON FOR VISIT Skin cancer screening exam HISTORY OF PRESENT ILLNESS Ms. Susie Suarez is a 75 y.o. female who presents today for a full skin cancer screening examination. The patient was last seen by me in Dermatology clinic on 03/26/20. We are following a lesion involving the left upper cutaneous lip, felt to be compatible with a dermal nevus. The patient denies a personal history of skin cancer. She reports a family history for melanoma in her sister. Her father has had probable basal cell carcinoma. She uses sunscreen. No Known Allergies MEDICAL HISTORY Negative for skin cancer ?? FAMILY HISTORY 1. Sister with history of [...] bilateral upper extremities, and bilateral lower extremities. No female machine leather trimmer needed per patient. Examination of the face, trunk and extremities reveals multiple benign-appearing nevi, lentigines and seborrheic keratoses. Examination of the left upper cheek reveals a 2.4 x 2.5 cm light-brown patch, compatible with a benign lentigo vs flat seborrheic keratosis. Examination of the left upper cutaneous lip (sharonda border) reveals a 4 x 4 mm skin-colored to slightly pink papule, compatible with a dermal nevus. Examination of the forehead (upper central) reveals a 4 x 4 mm firm white cyst- like papule with sometelangiectasia, compatible with a milia. She says the lesion has been present for at least 5-6 months. Examination of the right forehead reveals a 9 x 8 mm erythematous macule with minimal scaling. ASSESSMENT / PLAN #1 Forehead (upper central): Probable milia, rule out basal cell carcinoma We recommend a shave biopsy of the forehead (upper central). Photograph taken today with patient's verbal consent. We will correspond as to the results and if any further treatment is needed. PROCEDURAL PAUSE: Procedural pause conducted to verify: correct patient identity, procedure to be performed, and as applicable, correct side and site, correct patient position, and availability of implants, special equipment or special requirements. PROCEDURE DETAILS: Shave biopsy. We explained the potential diagnosis and recommended that we obtain a biopsy. The risks and benefitsof the procedure were discussed, and the patient consented to these procedures. The patient denies any allergies to local anesthetics. Using 1% lidocaine with epinephrine for local anesthesia, a shave biopsy was obtained from the forehead (upper central). Biopsy submitted to Dermatopathology for H&E. Special stains will be performed as indicated. The bleeding was well controlled with application of aluminum chloride. Dressing was applied, and wound care instructions were explained. Biopsy results and any further recommendations will be communicated to the patient by letter. Patient given pamphlet [id number]. Discussed the risks, benefits, alternatives, and the necessity of other members of the healthcare team participating in the procedure. All questions answered and consent given. #2 Right forehead: Probable lichenoid keratosis, rule out superficial basal cell carcinoma vs squamous cell carcinoma We recommend a shave biopsy of the right forehead. Photograph taken today with patient's verbal consent. We will correspond as to the results and if any further treatment is needed. PROCEDURAL PAUSE: Procedural pause conducted to verify: correct patient identity, procedure to be performed, and as applicable, correct side and site, correct patient position, and availability of implants, special equipment or special requirements. PROCEDURE DETAILS: Shave biopsy. We explained the potential diagnosis and recommended that we obtain a biopsy. The risks and benefitsof the procedure were discussed, and the patient consented to these procedures. The patient denies any allergies to local anesthetics. Using 1% lidocaine with epinephrine for local anesthesia, a shave biopsy was obtained from the right forehead. Biopsy submitted to Dermatopathology for H&E. Special stains will be performed as indicated. The bleeding was well controlled with application of aluminum chloride. Dressing was applied, and wound care instructions were explained. Biopsy results and any further recommendations will be communicated to the patient by letter. Patient given pamphlet [id number]. Discussed the risks, benefits, alternatives, and the necessity of other members of the healthcare team participating in the procedure. All questions answered and consent given. #3 Face, trunk and extremities: Multiple nevi and [...] immediate return visit for reassessment. #4 Face, trunk and extremities: Seborrheic keratosis The benign nature of the skin lesion(s) was discussed with the patient. No treatment is required. I recommend continued observation. Should symptoms or changes develop related to this condition, I would recommend a return visit for reassessment. #5 Left upper cutaneous lip (sharonda border): Dermal nevus The benign nature of the skin lesion(s) was discussed with the patient. No treatment is required. I recommend continued observation. Should this lesion change in size, color, texture, or shape or develop symptoms such as itching or bleeding, I recommend an immediate return visit for reassessment. PATIENT EDUCATION: Ready to learn. No apparent learning barriers were identified. Learning preferences include listening. Explained diagnosis and treatment plan; patient/guardian of patient expressed understanding of thecontent. By signing my name below, I, Jose L Shahid, attest that this documentation has been prepared under thedirection and in the presence of Cruzito Simon M.D. Electronically Signed: ethel Mariano. 11/18/2020. 9:19 AM CDT. I, Cruzito Simon M.D., personally performed the services described in this documentation. All medical record entries made by the scribe were at my direction and in my presence. I have reviewed the chart and discharge instructions (if applicable) and agree that the record reflects my personal performance and is accurate and complete. Cruzito Simon M.D. documented in this encounter Miscellaneous Notes Result Encounter Note - Cruzito Simon M.D. - 11/22/2020 4:17 PM CDT A. 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 Upper central forehead: Benign lesion [place] patient. Please send letter documented in this encounter Plan of Treatment Not on filedocumented as of this encounter Procedures Procedure Name Priority Date/Time Associated Comments Diagnosis DERMATOPATHOLOGY CONSULT Routine 11/18/2020 9:09 Tumor Skin Results for this AM CDT Uncertain Behavior procedure are in the results section. documented in this encounter Results Dermatopathology Consult (11/18/2020 9:09 AM CDT) Component Value Ref Test Analysis Performed At [facility] Range Method Time Signature 11/21/2020 [facility] 5:01 PM CDT Participated in [place] 11/21/2020 [facility] the Interpretation Dick Baca, 5:01 PM CDT D.O.-Patholog y Fellow Report Ese Silva 11/21/2020 [facility] electronically Linette Guerrero 5:01 PM CDT signed by Gross Description: A: ?? Received in formalin labeled with the p atient's name, 11/21/2020 [facility] medical record number, and right forehead is a 0.8 x 0.2 5:01 PM CDT x 0.1 cm pale fernandes-white skin shave biopsy. ??No discrete lesion is grossly identified on the skin surface. The specimen is submitted en toto in cassette A1. Grossed by YOLANDE. B: ?? Received in formalin labeled with the patient's name, medical record number, and forehead, upper central is a 0.4 x 0.3 x 0.1 cm pale fernandes-white skin shave biopsy. ??There is a 0.3 x 0.3 cm pale fernandes-yellow pigmented slightly raised lesion with irregular borders centrally located on the skin surface. The specimen is submitted en toto in cassette B1. Grossed by YOLANDE. Interpetation FINAL DIAGNOSIS 11/21/2020 [facility] A. ??DermPath Consult Wet Tissue; Right forehead, Skin shave 5:01 PM CDT biopsy: ??Squamous cell carcinoma in situ, involving biopsy border B. ??DermPath Consult Wet Tissue; Forehead, upper central, Skin shave biopsy: ??Superficial fragment of squamous-lined cyst, compatible with milium Specimen Anatomical Collection Method Collection Time Receive d Time (Source) Location / / Volume Laterality Tissue 11/18/2020 9:09 AM CDT 10:38 AM CDT Narrative This result has an attachment that is no t available. Cruzito Simon M.D. LAB PATH DERM ORDERABLES Performing Organization Address City/State/ZIP Code Phon e Number [facility] - [address] [place], [place] [address] [place] [address] [facility] [address] documented in this encounter Visit Diagnoses Diagnosis Tumor Skin Uncertain Behavior - Primary Nevi Multiple Keratosis Seborrheic documented in this encounter
--- OUTSIDE RECORDS SUMMARY | 2021-11-27 08:11 | XMS_ITS | Encounter Summary ---
:1945 Author Organization [facility] Address [address] [place] [address] Care Team Providers Name Role Phone Unavailable Primary Care Provider Unavailable Encounter Details Date Type Department Care Team Description 11/18/2020 Ancillary Procedure Department of Dermatology Social History [...] or relatives? How often do you attend christianity or yazdanism More than 4 time s per year 05/08/2021 services? Do you belong to any clubs or organizations Yes 05/08/2021 such as christianity groups, unions, fraternal or athletic groups, or [...] or slept in a halfway (including now)? Education Answer Date Recorded What is the highest level of school Master's degree (e.g., M A, MS, 09/01/2019 you have completed or the highest Ralph, MEd, FIELD RETURN REPAIRER, ROCIO) degree you have received? Sex Assigned at Date Recorded Female 09/01/2019 10:42 AM CDT documented as of this encounter Plan of Treatment Not on filedocumented as of this encounter Procedures Procedure Name Priority Date/Time Associated Comments Diagnosis DERMATOLOGY IMAGE Routine 11/18/2020 9:05 AM Resu lts for this EXAM CDT procedure are i n the results section. documented in this encounter Results Forehead 504-Dermatology Image Exam (11/18/2020 9:05 AM CDT) Specimen (Source) Anatomical Collection Method Collection Time Re ceived Time Location / / Volume Laterality 11/18/2020 9:03 AM CDT Narrative [facility] - 11/18/2020 9:06 AM CDT This order has been created [...]
--- OUTSIDE RECORDS SUMMARY | 2021-11-27 08:11 | XMS_ITS | Encounter Summary ---
:1945 Author Organization [facility] Address [address] [place] [address] Care Team Providers Name Role Phone Unavailable Primary Care Provider Unavailable Reason for Visit Reason Comments Follow-up lesion on left hip Appointment Request (Routine) - Closed Specialty Diagnoses / Procedures Referred By Contact Refer red To Contact Dermatology Referral ID Status Reason Start Date Expiration Date Visits Requ ested Visits Authorized [id number] Closed 04/21/2018 04/21/2019 1 Encounter Details Date Type Department Care Team Description 08/22/2018 Office Visit Department of Cruzito Simon Nevi Multi ple (Primary Dermatology in [place] ) [place], [place] [address] [place] [phone] Social History Tobacco Use Types Packs/Day Years [...] How often do you attend gnosticism or mosque More than 4 time s per year [...] place to sleep or slept in a penitentiary (including now)? Sex Assigned at Date Recorded Female 09/01/2019 10:42 AM CDT documented as of this encounter Progress Notes Cruzito Simon M.D. - 08/22/2018 12:45 PM CDT CHIEF COMPLAINT Recheck nevus involving left upper posterior thigh HISTORY OF THE PRESENT ILLNESS Susie Suarez is a pleasant 73 y.o. female who follows up for recheck of a nevus involving the left upper posterior thigh. During her last visit with me on 12/21/17, this lesion had some asymmetry but appeared benign on clinical examination and dermoscopy. Today, the patient denies any changes to the lesion. PAST MEDICAL HISTORY No history of skin cancer FAMILY HISTORY No family history of melanoma PHYSICAL EXAM General: Awake, alert, in no acute distress, and with appropriate affect. Skin: Examination of the left upper posterior thigh reveals a 5 mm x 3 mm light- brown nevus with very minimal irregular pigmentation. Examination of the left lateral thigh reveals a 3.5 mm x 3.5 mm benign-appearing nevus with minimal asymmetry. IMPRESSION AND PLAN #1 Left upper posterior thigh and left lateral thigh: Benign nevus x 2 These nevi appear benign on clinical examination and dermoscopy, and the nevus involving the left upper posterior thigh has not changed from previous exam. Given the slight irregular pigmentation, we will continue to monitor these two nevi. Photographs taken today with patient's verbal consent. I recommend continued sun protection, self-skin examinations, and observation. Should any of the patient's nevi change in size, color, texture, or shape or develop symptoms such as itching or bleeding, I recommend an immediate return visit for reassessment. Otherwise return in December as scheduled for recheck of these nevi and full skin cancer screening exam. PATIENT EDUCATION Ready to learn. No apparent learning barriers were identified. Learning preferences include listening. Explained diagnosis and treatment plan; patient/guardian of patient expressed understanding of thecontent. By signing my name below, I, Maegan Childers, attest that this documentation has been prepared under thedirection and in the presence of Cruzito Simon M.D. Electronically Signed: ethel Mendoza. 08/22/2018. 12:57 PM . ICruzito M.D., personally performed the services described in this documentation. All medical record entries made by the scribe were at my direction and in my presence. I have reviewed the chart and discharge instructions (if applicable) and agree that the record reflects my personal performance and is accurate and complete. Cruzito Simon M.D. . 08/22/2018. 2:00 PM. documented in this encounter Plan of Treatment Not on filedocumented as of this encounter Visit Diagnoses Diagnosis Nevi Multiple - Primary documented in this encounter
--- OUTSIDE RECORDS SUMMARY | 2021-11-27 08:11 | XMS_ITS | Encounter Summary ---
:1945 Author Organization [facility] Address [address] [place] [address] Care Team Providers Name Role Phone Unavailable [...] or relatives? How often do you attend mosque or amish More than 4 time s per year 05/08/2021 services? Do you belong to any clubs or organizations Yes 05/08/2021 such as mosque groups, unions, fraternal or athletic groups, or [...] have completed or the highest Ralph, MEd, TOOL RADIAL DRILL PRESS SET UP OPERATOR, ROCIO) degree you have received? Sex Assigned at Date Recorded Female 09/01/2019 10:42 AM CDT documented as of this encounter Plan of Treatment Not on filedocumented as of this encounter Procedures Procedure Name Priority Date/Time Associated Comments Diagnosis DERMATOLOGY IMAGE Routine 11/18/2020 9:06 AM Resu lts for this EXAM CDT procedure are i n the results section. documented in this encounter Results forehead, right 8-Dermatology Image Exam (11/18/2020 9:06 AM CDT) Specimen (Source) Anatomical Collection Method [...]
--- OUTSIDE RECORDS SUMMARY | 2021-11-27 08:11 | XMS_ITS | Encounter Summary ---
:1945 Author Organization [facility] Address [address] [place] [address] Care Team Providers Name Role Phone Unavailable Primary Care Provider Unavailable Reason for Visit Reason Comments Follow-up Encounter Details Date Type Department Care Team Description 05/12/2021 Office Visit Department of Cruzito Simon Squamous C ell [facility] [address] (Primary Dx) [address] [place] [phone] Social History Tobacco Use Types Packs/Day Years [...] or relatives? How often do you attend denominational or scientologist More than 4 time s per year 05/08/2021 services? Do you belong to any clubs or organizations Yes 05/08/2021 such as denominational groups, unions, fraternal or athletic groups, or [...] place to sleep or slept in a snf (including now)? Education Answer Date Recorded What is the highest level of school Master's degree (e.g., M Disha, MS, 09/01/2019 you have completed or the highest Ralph, MEd, COLD ROLL CATCHER, ROCIO) degree you have received? Sex Assigned at Date Recorded Female 09/01/2019 10:42 AM CDT documented as of this encounter Progress Notes Cruzito Simon M.D. - 05/12/2021 3:00 PM CST SUBJECTIVE CHIEF COMPLAINT / REASON FOR VISIT Recheck right forehead status post treatment of SCC in situ with Efudex cream HISTORY OF PRESENT ILLNESS Susie Suarez is a pleasant 75 y.o. female who presents for a a recheck of a lesion involving the right forehead. The patient was last seen by me in Dermatology clinic on 11/18/20. We diagnosed a SCCin situ involving the border from her right forehead and she was referred to [facility] for Mohssurgery. At that visit on January 13, 2021, they decided to treat her with Efudex cream twice daily for 6 weeks per review of their note. 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 Rice at [facility]. She reports that she applied the efudex cream for the full six weeks consecutively. She finished the Efudex cream in mid February, prior to . She denies a personal history or family history for melanoma. She uses sunscreen. She denies any new or changing lesions today. She feels that it healed well and she is not having any issues. She would like the area onher right forehead checked today. MEDICAL HISTORY 1. Right forehead: History of squamous cell carcinoma in situ, status post treatment with Efudex cream prescribed on 01/13/[address] Rice at [facility] 2. Negative for melanoma FAMILY HISTORY 1. Sister with history of melanoma 2. Father with history of non melanoma skin cancer, probable basal cell carcinoma OBJECTIVE PHYSICAL EXAMINATION General: Awake, alert, in no acute distress, and with appropriate affect. Skin: Limited skin exam done today. Examination of the right forehead reveals 1 x 1 cm area of blanchable erythema at the site of the previous squamous cell carcinoma in situ with no evidence for recurrence. ASSESSMENT / PLAN #1 Right forehead: History of squamous cell carcinoma in situ, status post treatment with Efudex cream prescribed on 01/13/[address] Rice at [facility] No clinical evidence of local recurrence today. Recommended monthly self-skin examinations to evaluate for new, changing, symptomatic, or otherwise worrisome lesions. Signs and symptoms of skin cancer discussed. Photoprotection was recommended. Return to Dermatology in August 2021 for a full skin exam and a recheck of the prior SCC in situ site or immediately if any new or changing lesions are noted. PATIENT EDUCATION: Ready to learn. No apparent learning barriers were identified. Learning preferences include listening. Explained diagnosis and treatment plan; patient/guardian of patient expressed understanding of thecontent. By signing my name below, ILeonor, attest that this documentation has been prepared under the direction and in the presence of Cruzito Simon M.D. Electronically Signed: ethel Keen. 05/12/2021. 12:50 PM ADVANCED MANUFACTURING CONSULTANT. ICruzito M.D., personally performed the services described in this documentation. All medical record entries made by the scribe were at my direction and in my presence. I have reviewed the chart and discharge instructions (if applicable) and agree that the record reflects my personal performance and is accurate and complete. Cruzito Simon M.D. NCED MANUFACTURING CONSULTANT documented in this encounter Plan of Treatment Not on filedocumented as of this encounter Visit Diagnoses Diagnosis Squamous Cell Carcinoma In Situ - Primar y documented in this encounter
--- OUTSIDE RECORDS SUMMARY | 2021-11-27 08:11 | XMS_ITS | Encounter Summary ---
:1945 Author Organization [facility] Address [address] [place] [address] Care Team Providers Name Role Phone Unavailable Primary Care Provider Unavailable Reason for Visit Reason Comments Appointment Encounter Details Date Type Department Care Team Description 01/25/2020 Clinical Communication Department of Cruzito Simon, Appointment Dermatology in .. [place], [place] [address] [facility] [address] [place] [phone] Social History Tobacco Use Types Packs/Day Years [...] or relatives? How often do you attend synagogue or scientologist More than 4 time s per year 05/08/2021 services? Do you belong to any clubs or organizations Yes 05/08/2021 such as synagogue groups, unions, fraternal or athletic groups, or [...] or slept in a longterm (including now)? Education Answer Date Recorded What is the highest level of school Master's degree (e.g., M A, MS, 09/01/2019 you have completed or the highest Ralph, MEd, SEWER PIPE LAYER HELPER, ROCIO) degree you have received? Sex Assigned at Date Recorded Female 09/01/2019 10:42 AM CDT documented as of this encounter Miscellaneous Notes Telephone Encounter - Doris Gordon L.P.N. - 01/29/2020 8:18 AM CDT I left a detailed message that we could see her on WednesdayJanuary 29 at 1015 check in. I have asked she call to confirm this appointment. Telephone Encounter - Anayeli Jones - 01/25/2020 1:32 PM CDT Pt called, stated the spot above her lip now has a bump. She would like to know what she should do. Please call pt back at [phone]. Ok to leave a detailed voicemail if she doesn't answer. documented in this encounter Plan of Treatment Not on filedocumented as of this encounter Visit Diagnoses Not on filedocumented in this encounter
--- OUTSIDE RECORDS SUMMARY | 2021-11-27 08:11 | XMS_ITS | Encounter Summary ---
:1945 Author Organization [facility] Address [address] [place] [address] Care Team Providers Name Role Phone Unavailable Primary Care Provider Unavailable Reason for Visit Reason Comments Lesion recheck lip Outpatient (Routine) - Closed Specialty Diagnoses / Procedures Referred By Contact Refer red To Contact Dermatology Cruzito Simon M.D . [facility] Region [address] [place] [address] [phone] Referral ID Status Reason Start Date Expiration Date Visits Requ ested Visits Authorized [id number] Closed 01/30/2020 01/29/2021 1 1 Encounter Details Date Type Department Care Team Description 03/26/2020 Office Visit Department of Cruzito Simon, Consuelo ferrer (Primary Dermatology in [place] ) [place], [place] [address] [place] [phone] Social History Tobacco Use Types Packs/Day [...] or relatives? How often do you attend episcopalian or mu-ism More than 4 time s per year 05/08/2021 services? Do you belong to any clubs or organizations Yes 05/08/2021 such as episcopalian groups, unions, fraternal or athletic groups, or [...] have completed or the highest Ralph, MEd, WIND TURBINE MECHANIC, ROCIO) degree you have received? Sex Assigned at Date Recorded Female 09/01/2019 10:42 AM CDT documented as of this encounter Progress Notes Cruzito Simon M.D. - 03/26/2020 11:15 AM CST SUBJECTIVE CHIEF COMPLAINT / REASON FOR VISIT Skin lesion HISTORY OF PRESENT ILLNESS Ms. Susie Suarez is a 74 y.o. female who presents today for a recheck of a skin lesion involving the skin above the left central sharonda border (left upper cutaneous lip, central) . The patientwas last seen by me in Dermatology clinic on 01/30/2020 and at that time we felt the lesion was compatible with a dermal nevus that was slightly irritated as there was 1 focal area of crusting. Photographs were taken of this nevus and I recommended she apply Vaseline to the area twice daily for crusting. The patient denies a history of skin cancer but her sister has a history of melanoma and her father has a history of non- melanoma skin cancer. Today she states the lesion has not changed at all since her previous visit in Dermatology clinic but that the crusting has resolved. She states she did apply Vaseline to the lesion twice daily and states again that this lesion has been present for 2-3 years. No Known Allergies MEDICAL HISTORY No history of skin cancer ?? FAMILY HISTORY 1. Sister with history of melanoma 2. Father with history of non melanoma skin cancer, probable bcc OBJECTIVE PHYSICAL EXAMINATION General: Awake, alert, in no acute distress, and with appropriate affect. Skin:Limited skin exam done today. Examination of the skin just above the left sharonda border involving the left upper central lip area reveals a 3.5 x 3.5 mm skin colored to slightly pink papule with no focal crust or irritation anduniform in color compatible with a dermal nevus. No longer irritated it is compatible with a dermal nevus on clinical exam and dermoscopy. ASSESSMENT / PLAN #1 Skin above left central sharonda border (left upper cutaneous lip, central): Dermal nevus There is no evidence for any focal crust or irritation and this lesion is compatible with a benign dermal nevus on clinical exam and dermoscopy. No treatment is required at this time. Discussed changesto watch for basal cell carcinoma and pamphlet given. Patient understands. PATIENT EDUCATION: Ready to learn. No apparent learning barriers were identified. Learning preferences include listening. Explained diagnosis and treatment plan; patient/guardian of patient expressed understanding of thecontent. By signing my name below, Carrie Tobias, attest that this documentation has been prepared underthe direction and in the presence of Cruzito Simon M.D. Electronically Signed: ethel Arellano. 03/26. Cruzito Tobias M.D., personally performed the services described in this documentation. All medical record entries made by the scribe were at my direction and in my presence. I have reviewed the chart and discharge instructions (if applicable) and agree that the record reflects my personal performance and is accurate and complete. Cruzito Simon M.D. 03/26/2020. MOBILE SERVICE ADVISOR documented in this encounter Plan of Treatment Not on filedocumented as of this encounter Visit Diagnoses Diagnosis Nevus Dermal - Primary documented in this encounter
--- NOTE | 2021-11-27 08:15 | CRLHL7_ITS ---
For Patients: As a result of the Century Cures Act, medical imaging exams and procedure reports are released immediately into your electronic medical record. You may view this report before your referring provider. If you have questions, please contact your health care provider. Indication: Amnesia Technique: T1 sagittal as well as diffusion, FLAIR and T2 axial images were obtained. No IV contrast. Comparison : None available. Findings : There is moderate symmetric cerebral atrophy. The cerebellum shows mild atrophy. Several foci of T2 signal abnormality are scattered in the cerebral white matter compatible with mild small vessel ischemic change. No evidence for acute infarct. No mass lesion or ventricular obstruction. No evidence for recent or remote intracranial hemorrhage. No focal cortical abnormality is identified. Grossly normal flow voids are maintained in the intracranial vascular structures. The craniovertebral junction is unremarkable, with a patent foramen magnum. Both temporal bones are well aerated. The paranasal sinuses are clear. Impression: 1. No acute pathology. 2. There is moderate generalized symmetric cerebral atrophy. 3. There is mild atrophy of the cerebellum. 4. Mild presumed small vessel ischemic changes. Dictated by Juaquin Aguilera MD @ 11/27/2021 9:36:28 AM (Electronically Signed)
== END 2021-11-27 08:08 | disposition home or self-care (01) ==
PROVIDERS: PCP Internal Medicine; Visit Provider Internal Medicine
DX: R41.3 Other amnesia (principal); G31.9 Degenerative disease of nervous system, unspecified
CPT/HCPCS: 70551

== ENCOUNTER 2022-03-19 08:00 | Outpatient (CLI) | payer MEDICARE, BC, SELFPAY ==
--- OUTSIDE RECORDS SUMMARY | 2022-03-19 08:03 | XMS_ITS | Encounter Summary ---
:1945 Author Organization [facility] Address [address] [place] [address] Care Team Providers Name Role Phone Unavailable Primary Care Provider Unavailable Reason for Referral Outpatient (Routine) - Closed Specialty Diagnoses / Procedures Referred By Contact Refer red To Contact Dermatology Cruzito Simon M.D . [facility] Region [address] [place] [phone] Referral ID Status Reason Start Date Expiration Date Visits Requ ested Visits Authorized [id number] Closed 01/30/2020 01/29/2021 1 1 Scheduling Instructions Recheck lip lesion and potential biopsy March 26, 11:15 a.m. Reason for Visit Reason Comments Suspicious Skin Lesion Encounter Details Date Type Department Care Team Description 01/30/2020 Office Visit Department of Dermatology Cruzito Simon , Nevus (Primary Dx) in [place] M.D. [place] [address] [place] [phone] Social History Tobacco Use Types Packs/Day Years [...] more drinks on one Never 05/08/2021 occasion? Social Isolation Answer Date Recorded In a typical week, how many times do you Twice a week 05/08/2021 talk on the phone with family, friends, or neighbors? How often do you get together with friends Twice a week 05/08/2021 or relatives? How often do you attend yazdanism or yarsanism More than 4 time s per year [...] completed or the highest Ralph, MEd, CENTRAL OFFICE EQUIPMENT ENGINEER, ROCIO) degree you have received? Sex Assigned [...] Simon M.D. Electronically Signed: ethel Arellano. 01/29. Cruzito Tobias M.D., personally performed the services described in this documentation. All medical record entries made by the scribe were at my direction and in my presence. I have reviewed the chart and discharge instructions (if applicable) and agree that the record reflects my personal performance and is accurate and complete. Cruzito Simon M.D. 01/29. documented in this encounter Plan of Treatment Upcoming Encounters Date Type Specialty Care Team Description 05/25/2022 Office Visit Dermatology Cruzito Simon M.D. [address] [place] [phone] (Wo ) Scheduled Referrals Name Type Priority Associated Order Schedule Diagnoses Dermatology office Outpatient Referral Routine Ex pected: visit (clinic) 03/26/2020 (Approximate), Expires: 01/29/2023 documented as of this encounter Visit Diagnoses Diagnosis Nevus - Primary documented in this encounter
--- OUTSIDE RECORDS SUMMARY | 2022-03-19 08:03 | XMS_ITS | Encounter Summary ---
:1945 Author Organization [facility] Address [address] [place] [address] Care Team Providers Name Role Phone Unavailable Primary Care Provider Unavailable Encounter Details Date Type Department Care Team Description 11/29/2020 Clinical Communication Department of Falguni Gibson Dermatology in , [place], [place] [address] [facility] [address] [place] [phone] Social History Tobacco Use Types Packs/Day Years [...] How often do you attend caodaism or baptist More than 4 time s per year [...] have completed or the highest Ralph, MEd, NNPS, ROCIO) degree you have received? Sex Assigned [...] Morales Sent: 11/29/2020 9:58 AM CDT To: Xavier Stahl, Rst Sunil Rogo Surg Charge Subject: Right forehead SCC Please advise on a date for this patient thank you documented in this encounter Plan of Treatment Upcoming Encounters Date Type Specialty Care Team Description 05/25/2022 Office Visit Dermatology Cruzito Simon M.D. [address] [place], [place] [phone] (Wo rk) documented as of this encounter Visit Diagnoses Not on filedocumented in this encounter
--- OUTSIDE RECORDS SUMMARY | 2022-03-19 08:03 | XMS_ITS | Encounter Summary ---
:1945 Author Organization [facility] Address [address] [place] [address] Care Team Providers Name Role Phone Unavailable Primary Care Provider Unavailable Reason for Visit Reason Comments Lesion recheck lip Outpatient (Routine) - Closed Specialty Diagnoses / Procedures Referred By Contact Refer red To Contact Dermatology Cruzito Simon M.D . [facility] Region [address] [place] [phone] Referral ID Status Reason Start Date Expiration Date Visits Requ ested Visits Authorized [id number] Closed 01/30/2020 01/29/2021 1 1 Encounter Details Date Type Department Care Team Description 03/26/2020 Office Visit Department of Cruzito Simon, Consuelo ferrer (Primary Dermatology in [place] ) [place], [place] [address] [place] [phone] Social History Tobacco Use Types Packs/Day [...] or relatives? How often do you attend methodist or orthodox More than 4 time s per year 05/08/2021 services? Do you belong to any clubs or organizations Yes 05/08/2021 such as methodist groups, unions, fraternal or athletic groups, or [...] or slept in a penitentiary (including now)? Education Answer Date Recorded What is the highest level of school Master's degree (e.g., M A, MS, 09/01/2019 you have completed or the highest Ralph, MEd, SENIOR MANUFACTURING TECHNICIAN, ROCIO) degree you have received? Sex Assigned [...] of thecontent. By signing my name below, ICarrie, attest that this documentation has been prepared [...] accurate and complete. Cruzito Simon M.D. 03/26/2020. W CARRIAGE OPERATOR documented in this encounter Plan of Treatment Upcoming Encounters Date Type Specialty Care Team Description 05/25/2022 Office Visit Dermatology Cruzito Simon M.D. 200 [place], [place] [phone] (Wo rk) documented as of this encounter Visit Diagnoses Diagnosis Nevus Dermal - Primary documented in this encounter
--- OUTSIDE RECORDS SUMMARY | 2022-03-19 08:03 | XMS_ITS | Encounter Summary ---
:1945 Author Organization [facility] Address [address] [place] [address] Care Team Providers Name Role Phone Unavailable Primary Care Provider Unavailable Reason for Referral Outpatient (Routine) - Closed Specialty Diagnoses / Procedures Referred By Contact Refer red To Contact Dermatology Cruzito Simon M.D . [facility] Region [address] [place] [phone] Referral ID Status Reason Start Date Expiration Date Visits Requ ested Visits Authorized [id number] Closed 09/05/2019 09/04/2020 1 1 Scheduling Instructions Please schedule for skin cancer screenin g exam sometime in December 2019. Reason for Visit Reason Comments Follow-up Outpatient (Routine) - Closed Specialty Diagnoses / Procedures Referred By Contact Refer red To Contact Dermatology Cruzito Simon M.D . [facility] Region [address] [place] [phone] Referral ID Status Reason Start Date Expiration Date Visits Requ ested Visits Authorized [id number] Closed 06/20/2019 06/19/2020 1 1 Encounter Details Date Type Department Care Team Description 09/05/2019 Office Visit Department of Cruzito Simon, Consuelo ferrer (Primary Dermatology in [place] ) [address] [phone] Social History Tobacco Use Types Packs/Day Years [...] or relatives? How often do you attend mormon or latter day More than 4 time s per year 05/08/2021 services? Do you belong to any clubs or organizations Yes 05/08/2021 such as mormon groups, unions, fraternal or athletic groups, or [...] place to sleep or slept in a [facility] (including now)? Education Answer Date Recorded What is the highest level of school Master's degree (e.g., M A, MS, 09/01/2019 you have completed or the highest Ralph, MEd, CONSTRUCTION CONTRACTOR, ROCIO) degree you have received? Sex Assigned [...] 05/25/2022 Office Visit Dermatology Cruzito Simon M.D. [address] [place] [phone] (Wo rk) Scheduled Referrals Name Type Priority Associated Order Schedule Diagnoses Dermatology office Outpatient Referral Routine Ex pected: visit (clinic) 01/15/2020 (Approximate), Expires: 09/04/2022 documented as of this encounter Visit Diagnoses Diagnosis Nevus Dermal - Primary documented in this encounter
--- OUTSIDE RECORDS SUMMARY | 2022-03-19 08:03 | XMS_ITS | Encounter Summary ---
:1945 Author Organization [facility] Address [address] [place] [address] Care Team Providers Name Role Phone Unavailable Primary Care Provider Unavailable Reason for Referral Outpatient (Routine) - Closed Specialty Diagnoses / Procedures Referred By Contact Refer red To Contact Dermatology Diagnoses Squamous Cell Carcinoma In Situ Cruzito Simon M.D. [facility] Procedures [facility] 1-4 sites [address] [place] [phone] Referral ID Status Reason Start Date Expiration Date Visits Requ ested Visits Authorized [id number] Closed 11/25/2020 11/25/2021 1 1 Encounter Details Date Type Department Care Team Description 11/25/2020 Orders Only Department of Cruzito Simon Encounter For Preprocedural Laboratory Examination (COVID-19) (Primary Dx); Dermatology ashanti Alegria M.D. Squamous Cell Carcinoma In Situ; [place], [place] [address] [facility] Contact With And (Suspected) Exposure To COVID-19 [address] [place] [phone] Social History Tobacco Use Types Packs/Day Years [...] or relatives? How often do you attend sikh or religion More than 4 time s per year 05/08/2021 services? Do you belong to any clubs or organizations Yes 05/08/2021 such as sikh groups, unions, fraternal or athletic groups, or [...] have completed or the highest Ralph, MEd, RELATIONSHIP MGR, ROCIO) degree you have received? Sex Assigned at Date Recorded Female 09/01/2019 10:42 AM CDT documented as of this encounter Plan of Treatment Upcoming Encounters Date Type Specialty Care Team Description 05/25/2022 Office Visit Dermatology Cruzito Simon M.D. [address] [place], [place] [phone] (Wo rk) Scheduled Orders Name Type Priority Associated Diagnoses Order S cheart [facility] 1-4 sites Dermatology Routine Squamous Cell Carcinom a Expected: 12/09/2020, In Situ Expires: 2023 documented as of this encounter Visit Diagnoses Diagnosis Encounter For Preprocedural Laboratory E xamination (COVID-19) - Primary Squamous Cell Carcinoma In Situ Contact With And (Suspected) Exposure To COVID-19 documented in this encounter
--- OUTSIDE RECORDS SUMMARY | 2022-03-19 08:03 | XMS_ITS | Encounter Summary ---
:1945 Author Organization [facility] Address [address] [place] [address] Care Team Providers Name Role Phone Unavailable [...] or relatives? How often do you attend muslim or baptist More than 4 time s per year 05/08/2021 services? Do you belong to any clubs or organizations Yes 05/08/2021 such as muslim groups, unions, fraternal or athletic groups, or [...] place to sleep or slept in a prison (including now)? Education Answer Date Recorded What is the highest level of school Master's degree (e.g., M Disha, MS, 09/01/2019 you have completed or the highest Ralph, MEd, IT COMPLIANCE MANAGER, ROCIO) degree you have received? Sex Assigned at Date Recorded Female 09/01/2019 10:42 AM CDT documented as of this encounter Plan of Treatment Upcoming Encounters Date Type Specialty Care Team Description 05/25/2022 Office Visit Dermatology Cruzito Simon M.D. [address] [place], [place] [phone] (Wo rk) documented as of this encounter Procedures Procedure Name [...]
--- OUTSIDE RECORDS SUMMARY | 2022-03-19 08:03 | XMS_ITS | Clinical Summary ---
:1945 Author Organization [facility] Address [address] [place] [address] Care Team Providers Name Role Phone Unavailable Primary Care Provider Unavailable Source Comments Patient records contain information from all sites at [facility]. For routine questions regarding patient records, call [phone] during business hours, M-F 8:00 AM - 5:00 PM Central Time. Record requests for emergency care only can be directed to [phone] at any time.[facility] Allergies No known active allergies Medications Medication [...] bedtime. Active Problems No known active problems Family History Medical History Relation Name Comments [...] or relatives? How often do you attend zoroastrian or presybeterian More than 4 time s per year 05/08/2021 services? Do you belong to any clubs or organizations Yes 05/08/2021 such as zoroastrian groups, unions, fraternal or athletic groups, or [...] to sleep or slept in a senior living (including now)? Education Answer Date Recorded What is the highest level of school Master's degree (e.g., M A, MS, 09/01/2019 you have completed or the highest Ralph, MEd, CULLED FRUIT PACKER, ROCIO) degree you have received? Sex Assigned [...] Mass Index - - Plan of Treatment Upcoming Encounters Date Type Specialty Care Team Description 05/25/2022 Office Visit Dermatology Cruzito Simon M.D. [address] [place], [place] [phone] (Wo rk) Health Maintenance Due Date Last Done Comments Bone Density Scan (Osteoporosis 1946 Screen) CT Colonography 1945 Cologuard 1945 Colonoscopy 1945 Colorectal Cancer Surveillance 1945 Fasting Glucose for Diabetes 1945 Screening Hepatitis C Screening 1945 Mammogram 1945 Depression Screening (Annual 04/19/2021 PHQ-2) Fall Risk Screen (Annual) 04/19/2021 DTaP,Tdap,and Td Vaccines (2 - Td 01/12/2027 01/12/2017, or Tdap) Pneumococcal vaccine (65+ years) Completed 12/18/2014, 09/2012 Zoster Vaccines Completed 01/02/2019, 10/18/2018, 06/20/2008 Influenza Vaccine Completed 12/28/2021, 12/22/2020, 12/28/2019, Additional history exists COVID-19 Vaccine Completed 12/29/2021, 07/23/2021, 02/11/2021, Additional history exists Insurance Payer Benefit Plan / Subscriber ID Effective Phone Address T ype Group Dates MEDICARE MEDICARE A AND [id number] 2011-Pres [address] [place] [address] BLUE CROSS BCBS U[place]ER [place] [id number] 2016-Pres [phone] [address] Cost Share BLUE SHIELD BLUE COST [phone] [place] [address] MEDICA MEDICA PRIME [id number] 2017-Pres [phone] [address] Cos t Share SOLUTIONS COST ent [phone] [place] [address] (Work) [phone]
--- OUTSIDE RECORDS SUMMARY | 2022-03-19 08:03 | XMS_ITS | Encounter Summary ---
:1945 Author Organization [facility] Address [address] [place] [address] Care Team Providers Name Role Phone Unavailable [...] How often do you attend orthodoxy or confucianism More than 4 time s [...] place to sleep or slept in a intermediate (including now)? Education Answer Date Recorded What is the highest level of school Master's degree (e.g., M Disha, MS, 09/01/2019 you have completed or the highest Ralph, MEd, ANTHROPOLOGY INSTRUCTOR, ROCIO) degree you have received? Sex Assigned at Date Recorded Female 09/01/2019 10:42 AM CDT documented as of this encounter Plan of Treatment Upcoming Encounters Date Type Specialty Care Team Description 05/25/2022 Office Visit Dermatology Cruzito Simon M.D. [address] [place] [phone] (Wo rk) documented as of this [...]
--- OUTSIDE RECORDS SUMMARY | 2022-03-19 08:03 | XMS_ITS | Encounter Summary ---
:1945 Author Organization [facility] Address [address] [place] [address] Care Team Providers Name Role Phone Unavailable Primary Care Provider Unavailable Reason for Visit Appointment Request (Routine) - Closed Specialty Diagnoses / Procedures Referred By Contact Refer red To Contact Dermatology Referral ID Status Reason Start Date Expiration Date Visits Requ ested Visits Authorized [id number] Closed 08/18/2021 08/18/2022 1 1 Encounter Details Date Type Department Care Team Description 11/17/2021 Office Visit Department of Cruzito Simon Nevi Multi ple (Primary Dx); Dermatology in [place] Keratosis [place], [place] [address] [phone] Social History Tobacco Use Types Packs/Day Years [...] or relatives? How often do you attend buddhism or temple More than 4 time s per year 05/08/2021 services? Do you belong to any clubs or organizations Yes 05/08/2021 such as buddhism groups, unions, fraternal or athletic groups, or [...] or slept in a correction (including now)? Education Answer Date Recorded What is the highest level of school Master's degree (e.g., M A, MS, 09/01/2019 you have completed or the highest Ralph, MEd, DOMESTIC CLEANER, ROCIO) degree you have received? Sex Assigned [...] prescribed on 01/13/[address] Rice at [facility]. She denies a personal history of melanoma. Her sister has a history for melanoma. She uses sunscreen. She denies any new or changing lesions today. MEDICAL HISTORY 1. Right forehead: History of squamous cell carcinoma in situ, status post treatment with Efudex cream prescribed on 01/13/[address] Rice at [facility] 2. Negative for melanoma FAMILY HISTORY 1. [...] extremities. My scribe (Leonor) served as a video poker floorman for the entirety of the exam. Examination [...] prescribed on 01/13/[address] Rice at [facility], no recurrence No clinical evidence of local [...] Visit Dermatology Cruzito Simon M.D. [address] [place], [place] [phone] (Wo rk) documented as of this encounter Visit Diagnoses Diagnosis Nevi Multiple - Primary Keratosis Seborrheic documented in this encounter
--- OUTSIDE RECORDS SUMMARY | 2022-03-19 08:03 | XMS_ITS | Encounter Summary ---
:1945 Author Organization [facility] Address [address] [place] [address] Care Team Providers Name Role Phone Unavailable Primary Care Provider Unavailable Reason for Visit Reason Comments Skin Check Appointment Request (Routine) - Closed Specialty Diagnoses / Procedures Referred By Contact Refer red To Contact Referral ID Status Reason Start Date Expiration Date Visits Requ ested Visits Authorized [id number] Closed 07/17/2020 07/17/2021 1 1 Encounter Details Date Type Department Care Team Description 11/18/2020 Office Visit Department of Cruzito Simon, Tumor Skin Uncertain Behavior (Primary Dx); Dermatology in Melo Jud Nevi [facility]; [place], [place] [address] [facility] Keratosis Seborrheic [address] [place] [phone] Social History Tobacco Use Types Packs/Day Years [...] or relatives? How often do you attend restoration or samaritan More than 4 time s per year 05/08/2021 services? Do you belong to any clubs or organizations Yes 05/08/2021 such as restoration groups, unions, fraternal or athletic groups, or [...] have completed or the highest Ralph, MEd, SCREEN HANDLER, ROCIO) degree you have received? Sex Assigned [...] extremities, and bilateral lower extremities. No female animal laboratory technician needed per patient. Examination of the face, [...] the patient by letter. Patient given pamphlet [id number]. Discussed the risks, benefits, alternatives, and the [...] the patient by letter. Patient given pamphlet [id number]. Discussed the risks, benefits, alternatives, and the [...] signing my name below, I, Jose L Zehra, attest that this documentation has been prepared under thedirection and in the presence of Cruzito Simon M.D. Electronically Signed: ethel Mariano. 11/18/2020. 9:19 AM CDT. I, Crzuito Simon M.D., personally performed the services described [...] Visit Dermatology Cruzito Simon M.D. [address] [place], [place] [phone] (Wo rk) documented as of this encounter Procedures Procedure Name Priority Date/Time Associated Comments Diagnosis DERMATOPATHOLOGY CONSULT Routine 11/18/2020 9:09 Tumor Skin Results for this AM CDT Uncertain Behavior procedure are in the results section. documented in this encounter Results Dermatopathology Consult (11/18/2020 9:09 AM CDT) Component Value Ref Test Analysis Performed At [facility] Method Time Signature 11/21/2020 PDRM 5:01 PM CDT Participated in [place] [facility] 11/21/2020 RAO the Interpretation Dick Baca, 5:01 PM CDT D.O.-Patholog y Fellow Report Ese Silva 11/21/2020 PDRM electronically Linette Guerrero 5:01 PM CDT signed by Mavis Description: A: ?? Received in formalin labeled [...] Grossed by YOLANDE. Interpetation FINAL DIAGNOSIS 11/21/2020 [facility] A. 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
--- OUTSIDE RECORDS SUMMARY | 2022-03-19 08:03 | XMS_ITS | Encounter Summary ---
:1945 Author Organization [facility] Address [address] [place] [address] Care Team Providers Name Role Phone Unavailable Primary Care Provider Unavailable Reason for Visit Reason Comments Skin Check Outpatient (Routine) - Closed Specialty Diagnoses / Procedures Referred By Contact Refer red To Contact Dermatology Cruzito Simon M.D . [place] [address] [place] [address] Referral ID Status Reason Start Date Expiration Date Visits Requ ested Visits Authorized [id number] Closed 09/05/2019 09/04/2020 1 1 Encounter Details Date Type Department Care Team Description 12/18/2019 Office Visit Department of Cruzito Simon, Keratosis Seborrheic (Primary Dx); Dermatology in Melo Sue Nevi Multiple; [place], [place] [address] [facility] Keratosis Actinic; [address] [place] [address] [place] [phone] Social History Tobacco Use Types Packs/Day [...] How often do you attend gnosticist or rastafari More than 4 time s per year 05/08/2021 services? Do you belong to any clubs or organizations Yes 05/08/2021 such as gnosticist groups, unions, fraternal or athletic groups, or [...] place to sleep or slept in a assisted (including now)? Education Answer Date Recorded What is the highest level of school Master's degree (e.g., M A, MS, 09/01/2019 you have completed or the highest Ralph, MEd, MANNEQUIN REFINISHER, ROCIO) degree you have received? Sex Assigned [...] Visit Dermatology Cruzito Simon M.D. 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
--- OUTSIDE RECORDS SUMMARY | 2022-03-19 08:03 | XMS_ITS | Encounter Summary ---
:1945 Author Organization [facility] Address [address] [place] [address] Care Team Providers Name Role Phone Unavailable Primary Care Provider Unavailable Reason for Visit Reason Comments Squamous Cell Carcinoma Outpatient (Routine) - Closed Specialty Diagnoses / Procedures Referred By Contact Refer red To Contact Dermatology Diagnoses Squamous Cell Carcinoma In Situ Cruzito Simon M.D. [facility] Procedures [facility] 1-[address] sites [address] [place] [phone] Referral ID Status Reason Start Date Expiration Date Visits Requ ested Visits Authorized [id number] Closed 11/25/2020 11/25/2021 1 1 Encounter Details Date Type Department Care Team Description 01/13/2021 Procedure visit Department of Sidney Rice Squamo us Cell Dermatology in M.D. Carcinoma In Situ [place], [place] [address] [facility] [address] [place] [phone] Social History Tobacco Use Types Packs/Day Years [...] How often do you attend denominational or adventist More than 4 time s per year [...] have completed or the highest Ralph, MEd, STATION MANAGER, ROCIO) degree you have received? Sex [...] M.D. - 01/13/2021 10:30 AM CDT Supervising consumer services consultant: Dr. Rice CHIEF COMPLAINT/PURPOSE OF VISIT [...] for routine ongoing skin checks with a metal box maker given her recent diagnosis of skin cancer. [...] Visit Dermatology Cruzito Simon M.D. [address] [place], [place] [phone] (Wo rk) documented as of this encounter Visit Diagnoses Diagnosis Squamous Cell Carcinoma In Situ documented in this encounter
--- OUTSIDE RECORDS SUMMARY | 2022-03-19 08:03 | XMS_ITS | Encounter Summary ---
:1945 Author Organization [facility] Address [address] [place] [address] Care Team Providers Name Role Phone Unavailable Primary Care Provider Unavailable Reason for Visit Reason Comments Appointment Encounter Details Date Type Department Care Team Description 01/25/2020 Clinical Communication Department of Cruzito Simon, Appointment Dermatology in M.D. [place], [place] [address] [facility] [address] [place] [phone] Social History Tobacco Use Types Packs/Day Years [...] or relatives? How often do you attend druze or scientology More than 4 time s per year 05/08/2021 services? Do you belong to any clubs or organizations Yes 05/08/2021 such as druze groups, unions, fraternal or athletic groups, or [...] place to sleep or slept in a skilled nursing (including now)? Education Answer Date Recorded What is the highest level of school Master's degree (e.g., M A, MS, 09/01/2019 you have completed or the highest Ralph, MEd, PLUMBING DESIGNER, ROCIO) degree you have received? Sex Assigned [...] should do. Please call pt back at [phone]. Ok to leave a detailed voicemail if she doesn't answer. documented in this encounter Plan of Treatment Upcoming Encounters Date Type Specialty Care Team Description 05/25/2022 Office Visit Dermatology Cruzito Simon M.D. [address] [place] [phone] (Wo rk) documented as of this encounter Visit Diagnoses Not on filedocumented in this encounter
--- OUTSIDE RECORDS SUMMARY | 2022-03-19 08:03 | XMS_ITS | Encounter Summary ---
:1945 Author Organization [facility] Address [address] [place] [address] Care Team Providers Name Role Phone Unavailable Primary Care Provider Unavailable Reason for Referral Outpatient (Routine) - Closed Specialty Diagnoses / Procedures Referred By Contact Refer red To Contact Dermatology Cruzito Simon M.D . [facility] [address] [place] [phone] Referral ID Status Reason Start Date Expiration Date Visits Requ ested Visits Authorized [id number] Closed 06/20/2019 06/19/2020 1 1 Scheduling Instructions Return for potential shave biopsy lip July 17 1:00 p.m. ON GRADER Reason for Visit Reason Comments Skin Check Appointment Request (Routine) - Closed Specialty Diagnoses / Procedures Referred By Contact Refer red To Contact Dermatology Referral ID Status Reason Start Date Expiration Date Visits Requ ested Visits Authorized [id number] Closed 12/21/2018 12/21/2019 1 Encounter Details Date Type Department Care Team Description 06/20/2019 Office Visit Department of Cruzito Simon Nevi Multi ple (Primary Dx); Dermatology in Mel[place], [place] [address] [place] [phone] Social History Tobacco Use Types Packs/Day Years [...] or relatives? How often do you attend moravian or buddhism More than 4 time s per year 05/08/2021 services? Do you belong to any clubs or organizations Yes 05/08/2021 such as moravian groups, unions, fraSignalSet or athletic groups, or school groups? How [...] Electronically Signed: ethel Mariano. 06/20/2019. 3:18 PM COTTON GRADER. Cruzito Tobias M.D., personally performed the services described in this documentation. All medical record entries made by the scribe were at my direction and in my presence. I have reviewed the chart and discharge instructions (if applicable) and agree that the record reflects my personal performance and is accurate and complete. Cruzito Simon M.D. . 06/20/2019. 5:07 PM COTTON GRADER. ON GRADER documented in this encounter Plan of Treatment Upcoming Encounters Date Type Specialty Care Team Description 05/25/2022 Office Visit Dermatology Cruzito Simon M.D. [address] [place] [phone] (Wo rk) Scheduled Referrals Name Type Priority Associated Order Schedule Diagnoses Dermatology office Outpatient Referral Routine Ex pected: visit (clinic) 07/18/2019 (Approximate), Expires: 06/19/2022 documented as of this encounter Visit Diagnoses Diagnosis Nevi Multiple - Primary Nevus Dermal documented in this encounter
--- OUTSIDE RECORDS SUMMARY | 2022-03-19 08:03 | XMS_ITS | Encounter Summary ---
:1945 Author Organization [facility] Address [address] [place] [address] Care Team Providers Name Role Phone Unavailable [...] How often do you attend methodist or nondenominational More than 4 time s per year [...] place to sleep or slept in a care home (including now)? Education Answer Date Recorded What is the highest level of school Master's degree (e.g., M Disha, MS, 09/01/2019 you have completed or the highest Ralph, MEd, OFFICIAL COURT REPORTER, ROCIO) degree you have received? Sex Assigned at Date Recorded Female 09/01/2019 10:42 AM CDT documented as of this encounter Plan of Treatment Upcoming Encounters Date Type Specialty Care Team Description 05/25/2022 Office Visit Dermatology Cruzito Simon M.D. [address] [place] [phone] (Wo rk) documented as of this [...]
--- OUTSIDE RECORDS SUMMARY | 2022-03-19 08:03 | XMS_ITS | Encounter Summary ---
:1945 Author Organization [facility] Address [address] [place] [address] Care Team Providers Name Role Phone Unavailable [...] How often do you attend mu-ism or buddhism More than 4 time s [...] place to sleep or slept in a alf (including now)? Sex Assigned at Date Recorded Female 09/01/2019 10:42 AM CDT documented as of this encounter Plan of Treatment Upcoming Encounters Date Type Specialty Care Team Description 05/25/2022 Office Visit Dermatology Cruzito Simon M.D. [address] [place], [place] [phone] (Wo rk) documented as of this encounter Procedures Procedure Name Priority Date/Time Associated Comments Diagnosis DERMATOLOGY IMAGE Routine 06/20/2019 3:25 PM Resu lts for this EXAM SURGERY CENTER ADMINISTRATOR procedure are i n the results section. documented in this encounter Results lip, left upper mucosal 31-Dermatology Image Exam (06/20/2019 3:25 PM SURGERY CENTER ADMINISTRATOR) Specimen (Source) Anatomical Collection Method Collection Time Re ceived Time Location / / Volume Laterality 06/20/2019 3:22 PM SURGERY CENTER ADMINISTRATOR Narrative IIMS - 06/20/2019 3:25 PM SURGERY CENTER ADMINISTRATOR This order has been created and auto-finalized [...]
--- OUTSIDE RECORDS SUMMARY | 2022-03-19 08:03 | XMS_ITS | Encounter Summary ---
:1945 Author Organization [facility] Address [address] [place] [address] Care Team Providers Name Role Phone Unavailable [...] or relatives? How often do you attend faith or restorationist More than 4 time s per year 05/08/2021 services? Do you belong to any clubs or organizations Yes 05/08/2021 such as faith groups, unions, fraternal or athletic groups, or [...] or slept in a fci (including now)? Education Answer Date Recorded What is the highest level of school Master's degree (e.g., M Disha, MS, 09/01/2019 you have completed or the highest Ralph, MEd, RUBBER ROLLER GRINDER OPERATOR, ROCIO) degree you have received? Sex Assigned at Date Recorded Female 09/01/2019 10:42 AM CDT documented as of this encounter Plan of Treatment Upcoming Encounters Date Type Specialty Care Team Description 05/25/2022 Office Visit Dermatology Cruzito Simon M.D. [address] [place] [phone] (Wo rk) documented as of this [...]
--- OUTSIDE RECORDS SUMMARY | 2022-03-19 08:03 | XMS_ITS | Encounter Summary ---
:1945 Author Organization [facility] Address [address] [place] [address] Care Team Providers Name Role Phone Unavailable Primary Care Provider Unavailable Encounter Details Date Type Department Care Team Description 11/29/2020 Orders Only Department of Sidnye Rice, Squamous Cell Dermatology in M.D. Carcinoma Skin Other [place], [place] [address] [email or web address]] Parts Face (Primary [address] [place], [place] Dx) [place] [phone] Social History Tobacco Use Types Packs/Day Years [...] or relatives? How often do you attend anglican or confucianism More than 4 time s per year 05/08/2021 services? Do you belong to any clubs or organizations Yes 05/08/2021 such as anglican groups, unions, fraternal or athletic groups, or [...] have completed or the highest Ralph, MEd, DRILLING FIELD SPECIALIST, ROCIO) degree you have received? Sex Assigned at Date Recorded Female 09/01/2019 10:42 AM CDT documented as of this encounter Plan of Treatment Upcoming Encounters Date Type Specialty Care Team Description 05/25/2022 Office Visit Dermatology Cruzito Simon M.D. [address] [place] [phone] (Wo rk) documented as of this encounter Results SARS Coronavirus-2 RNA, V Asymptomatic (01/10/2021 1:13 PM CDT) [facility] Method Time Signature SARS-CoV-2 Swab, 01/11/2021 [...] pe rformed using the Aptima SARS-CoV-2 assay ([employer] on the [employer] tem under emergency use authorization (EUA) by the U.S. Food and Drug Administ ration. Fact sheets for this EUA assay can be fo und at the following links: For Healthcare Providers: https://www.Bit[employer] a.gov/media/748716/download For Patients: https://www.fda.gov/media/ 458379/download Specimen Anatomical Collection Method Collection Time Receive d Time (Source) Location / / Volume Laterality Varies 01/10/2021 1:13 PM 7:38 (Nasopharynx) CDT PM CDT Sidney Rice M.D. LAB MICROBIOLOGY - GENERAL O RDERABLES Performing Organization Address City/State/ZIP Code Phon e Number [facility]- [address] [place] [address] [place] [address] [address] documented in this encounter Visit Diagnoses Diagnosis Squamous Cell Carcinoma Skin Other Parts Face - Primary documented in this encounter
--- OUTSIDE RECORDS SUMMARY | 2022-03-19 08:03 | XMS_ITS | Encounter Summary ---
:1945 Author Organization [facility] Address [address] [place] [address] Care Team Providers Name Role Phone Unavailable Primary Care Provider Unavailable Reason for Visit Reason Comments Follow-up Encounter Details Date Type Department Care Team Description 05/12/2021 Office Visit Department of Cruzito Simon Squamous C ell Dermatology in [place] Carcinoma In Situ [place], [place] [address] [place] [address] (Primary Dx) [address] [place] [phone] Social History Tobacco Use Types Packs/Day Years [...] How often do you attend denominational or shinto More than 4 time s per year [...] have completed or the highest Ralph, MEd, CAMPUS RECEPTIONIST, ROCIO) degree you have received? Sex Assigned [...] right forehead and she was referred to [facility] for Mohssurgery. At that visit on January 13, 2021, they decided to treat her with Efudex cream twice daily for 6 weeks per review of their note. 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 Rice at [facility]. She reports that she applied the [...] prescribed on 01/13/[address] Rice at [facility] 2. Negative for melanoma FAMILY HISTORY [...] prescribed on 01/13/[address] Rice at [facility] No clinical evidence of local recurrence [...] Electronically Signed: ethel Keen. 05/12/2021. 12:50 PM ELECTRONICS SYSTEM MECHANIC. Cruzito Tobias M.D., personally performed the services described in this documentation. All medical record entries made by the scribe were at my direction and in my presence. I have reviewed the chart and discharge instructions (if applicable) and agree that the record reflects my personal performance and is accurate and complete. Cruzito Simon M.D. TRONICS SYSTEM MECHANIC documented in this encounter Plan of Treatment Upcoming Encounters Date Type Specialty Care Team Description 05/25/2022 Office Visit Dermatology Cruzito Simon M.D. [address] [place] [address] [phone] (Wo rk) documented as of this encounter Visit Diagnoses Diagnosis Squamous Cell Carcinoma In Situ - Primar y documented in this encounter
--- OUTSIDE RECORDS SUMMARY | 2022-03-19 08:03 | XMS_ITS | Encounter Summary ---
:1945 Author Organization [facility] Address [address] [place] [address] Care Team Providers Name Role Phone Unavailable Primary Care Provider Unavailable Encounter Details Date Type Department Care Team Description 01/10/2021 Lab Department of [facility] Sidney Rice Sq uamous Cell Carcinoma [facility] Other [facility] Face [facility], in [place] [address] [phone] [place] [address] [facility] [phone] Social History Tobacco Use Types Packs/Day Years [...] or relatives? How often do you attend temple or hoahaoism More than 4 time s per year 05/08/2021 services? Do you belong to any clubs or organizations Yes 05/08/2021 such as temple groups, unions, fraternal or athletic groups, or [...] have completed or the highest Ralph, MEd, FRONT OFFICE SPECIALIST, ROCIO) degree you have received? Sex Assigned at Date Recorded Female 09/01/2019 10:42 AM CDT documented as of this encounter Plan of Treatment Upcoming Encounters Date Type Specialty Care Team Description 05/25/2022 Office Visit Dermatology Cruzito Simon M.D. [address] [place] [address] [phone] (Wo rk) documented as of this encounter Procedures Procedure Name Priority Date/Time Associated Diagnosis Comme nts SARS CORONAVIRUS-2 Routine 01/10/2021 1:13 PM Squamous Cell Re sults for this RNA, V CDT Carcinoma Skin Other procedu re are in Parts Face the results section. documented in this encounter Results SARS Coronavirus-2 RNA, V Asymptomatic (01/10/2021 1:13 PM CDT) [facility] [place] [facility] Method Time Signature SARS-CoV-2 Swab, 01/11/2021 [...] pe rformed using the Aptima SARS-CoV-2 assay ([employer] on the [place] Sys tem under emergency use authorization (EUA) by the U.S. Food and Drug Administ reynaldo. Fact sheets for this EUA assay can be fo und at the following links: For Healthcare Providers: https://www.fd a.gov/media/007375/download For Patients: https://www.fda.gov/media/ 341935/download Specimen Anatomical Collection Method Collection Time Receive d Time (Source) Location / / Volume Laterality Varies 01/10/2021 1:13 PM 7:38 (Nasopharynx) CDT PM CDT Sidney Rice M.D. LAB MICROBIOLOGY - GENERAL O RDERABLES Performing Organization Address City/State/[facility] Phon e Number [facility]- [address] [place] [address] [place] [address] [address] documented in this encounter Visit Diagnoses Diagnosis Squamous Cell Carcinoma Skin Other Parts Face documented in this encounter Additional Health Concerns Infection Onset Date Last Indicated Resolved Time COVID19 Pending 01/09/2021 01/10/2021 01/11/2021 2:35 AM CDT documented as of this encounter
--- OUTSIDE RECORDS SUMMARY | 2022-03-19 08:03 | XMS_ITS | Encounter Summary ---
:1945 Author Organization [facility] Address [address] [place] [id number] Care Team Providers Name Role Phone Unavailable [...] or relatives? How often do you attend restorationist or quaker More than 4 time s per year 05/08/2021 services? Do you belong to any clubs or organizations Yes 05/08/2021 such as restorationist groups, unions, fraternal or athletic groups, or [...] have completed or the highest Ralph, MEd, RESIDENCE COUNSELOR, ROCIO) degree you have received? Sex Assigned at Date Recorded Female 09/01/2019 10:42 AM CDT documented as of this encounter Plan of Treatment Upcoming Encounters Date Type Specialty Care Team Description 05/25/2022 Office Visit Dermatology Cruzito Simon M.D. [address] [place] [address] [phone] (Wo rk) documented as of this [...]
--- OUTSIDE RECORDS SUMMARY | 2022-03-19 08:03 | XMS_ITS | Encounter Summary ---
:1945 Author Organization [facility] Address [address] [place] [address] Care Team Providers Name Role Phone Unavailable Primary Care Provider Unavailable Encounter Details Date Type Department Care Team Description 07/20/2019 Clinical Communication Department of Cruzito Simon, Dermatology in M.D. [place], [place] [address] [facility] [address] [place] [phone] Social History Tobacco Use Types Packs/Day Years [...] or relatives? How often do you attend baptist or quaker More than 4 time s per year 05/08/2021 services? Do you belong to any clubs or organizations Yes 05/08/2021 such as baptist groups, unions, fraternal or athletic groups, or [...] to follow up in [facility] [place] status post COVID-19 for further evaluation, and [...] Cruzito Simon M.D. CT CT Job ID: [id number]/lak documented in this encounter Plan of Treatment Upcoming Encounters Date Type Specialty Care Team Description 05/25/2022 Office Visit Dermatology Cruzito Simon M.D. [address] [place] [address] [phone] (Wo rk) documented as of this encounter Visit Diagnoses Not on filedocumented in this encounter
--- OUTSIDE RECORDS SUMMARY | 2022-03-19 08:04 | XMS_ITS | Encounter Summary ---
:1945 Author Organization [facility] Address [address] [place] [address] Care Team Providers Name Role Phone Unavailable Primary Care Provider Unavailable Reason for Visit Reason Comments Follow-up lesion on left hip Appointment Request (Routine) - Closed Specialty Diagnoses / Procedures Referred By Contact Refer red To Contact Dermatology Referral ID Status Reason Start Date Expiration Date Visits Requ ested Visits Authorized [id number] Closed 04/21/2018 04/21/2019 1 Encounter Details Date Type Department Care Team Description 08/22/2018 Office Visit Department of Cruzito Simon Nevi Multi ple (Primary Dermatology in [place] ) [place], [place] [address] [place] [phone] Social History Tobacco Use Types Packs/Day Years [...] How often do you attend zoroastrian or denominational More than 4 time s per year [...] Visit Dermatology Cruzito Simon M.D. [address] [place], [place] [phone] (Wo rk) documented as of this encounter Visit Diagnoses Diagnosis Nevi Multiple - Primary documented in this encounter
--- OUTSIDE RECORDS SUMMARY | 2022-03-19 08:04 | XMS_ITS | Encounter Summary ---
:1945 Author Organization [facility] Address [address] [place] [address] Care Team Providers Name Role Phone Unavailable Primary Care Provider Unavailable Reason for Visit Reason Comments Skin Check Appointment Request (Routine) - Closed Specialty Diagnoses / Procedures Referred By Contact Refer red To Contact Family Medicine Referral ID Status Reason Start Date Expiration Date Visits Requ ested Visits Authorized [id number] Closed 09/20/2017 09/20/2018 1 1 Encounter Details Date Type Department Care Team Description 12/21/2017 Office Visit Department of Cruzito Simon Nevi Multi ple (Primary Dx); Dermatology in [place] Keratosis [place], [place] [address] [phone] Social History Tobacco Use Types Packs/Day Years [...] How often do you attend zoroastrian or jew More than 4 time s per year [...] place to sleep or slept in a nursing home (including now)? Sex Assigned at Date Recorded [...] last visit with me on 04/27/16 in [place], she had an 8-mm punch excision of [...] Signed: ethel Hazel. 12/21/2017. 2:27 PM . ICruzito M.D., personally performed the [...] Office Visit Dermatology Cruzito Simon M.D. 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
--- OUTSIDE RECORDS SUMMARY | 2022-03-19 08:04 | XMS_ITS | Encounter Summary ---
:1945 Author Organization [facility] Address [address] [place] [address] Care Team Providers Name Role Phone Unavailable Primary Care Provider Unavailable Reason for Visit Reason Comments Skin Check Appointment Request (Routine) - Closed Specialty Diagnoses / Procedures Referred By Contact Refer red To Contact Family Medicine Referral ID Status Reason Start Date Expiration Date Visits Requ ested Visits Authorized [id number] Closed 06/22/2018 06/22/2019 1 Encounter Details Date Type Department Care Team Description 12/20/2018 Office Visit Department of Cruzito Simon Nevi Multi ple (Primary Dx); Dermatology in [place] Keratosis [place], [place] [address] [place] [phone] Social History Tobacco Use Types Packs/Day Years [...] or relatives? How often do you attend yarsanism or muslim More than 4 time s per year 05/08/2021 services? Do you belong to any clubs or organizations Yes 05/08/2021 such as yarsanism groups, unions, fraternal or athletic groups, or [...] Electronically Signed: ethel Mariano. 12/20/2018. 2:10 PM. ICruzito M.D., personally performed the services described [...] 05/25/2022 Office Visit Dermatology Cruzito Simon M.D. 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
--- OUTSIDE RECORDS SUMMARY | 2022-03-19 08:04 | XMS_ITS | Encounter Summary ---
:1945 Author Organization [facility] Address [address] [place] [address] Care Team Providers Name Role Phone Unavailable [...] How often do you attend baptist or mandaen More than 4 time s per year [...] Dermatology Cruzito Simon M.D. [address] [place], [place] [phone] (Wo rk) documented as [...]
== END 2022-03-19 08:01 | disposition home or self-care (01) ==
PROVIDERS: PCP Internal Medicine; Visit Provider Surgery
DX: Z12.11 Encounter for screening for malignant neoplasm of colon (principal); K63.5 Polyp of colon; Z86.010 Personal history of colon polyps
CPT/HCPCS: 45385; 88305; 99153; J1200; J2250; J3010

== ENCOUNTER 2022-07-10 09:55 | Outpatient (CLI) | payer MEDICARE, BC, SELFPAY ==
--- NOTE | 2022-07-10 10:15 | CRLHL7_ITS ---
For Patients: As a result of the Cures Act, medical imaging exams and procedure reports are released immediately into your electronic medical record. You may view this report before your referring provider. If you have questions, please contact your health care provider. BILATERAL SCREENING MAMMOGRAM WITH COMPUTER-AIDED DETECTION AND TOMOSYNTHESIS TECHNIQUE: CC and MLO views were obtained. These mammographic images have been obtained using full-field digital technique. These mammographic images were interpreted with the benefit of computer-aided detection. Breast tomosynthesis was used in this interpretation. COMPARISON FILM: 07/09/21, 07/03/20, 06/07/19. FINDINGS: There are scattered areas of fibroglandular density. IMPRESSION: There is no radiographic evidence for malignancy. ASSESSMENT: BI-RADS Category 1: Negative RECOMMENDATION: Routine screening mammogram in 1 year. A lay language report of this examination will be provided to the patient. TRES KURTZ M.D. Diagnostic Radiologist [email or web address] JACOB/[email or web address] Transcribed: 07/10/2022, 1:[address]/Dictated by: Tres Kurtz MD @ 07/10/2022 11:26:00 AM (Electronically Signed)
== END 2022-07-10 09:56 | disposition home or self-care (01) ==
LOC: MAMMO 09:57
PROVIDERS: PCP Internal Medicine; Visit Provider Internal Medicine
DX: Z12.31 Encounter for screening mammogram for malignant neoplasm of breast (principal)
CPT/HCPCS: 77063; 77067

== ENCOUNTER 2023-03-03 08:54 | Outpatient (CLI) | payer MEDICARE, BC, SELFPAY | END 2023-03-03 08:55 | disposition home or self-care (01) | PROVIDERS: PCP Internal Medicine; Referring Provider Internal Medicine; Visit Provider Internal Medicine | DX: M85.80 Other specified disorders of bone density and structure, unspecified site (principal); E78.5 Hyperlipidemia, unspecified; I10 Essential (primary) hypertension | CPT/HCPCS: 80048; 80061; 82306 ==

== ENCOUNTER 2023-07-14 07:31 | Outpatient (CLI) | payer MEDICARE, BC, SELFPAY ==
--- NOTE | 2023-07-14 07:45 | MM_ITS ---
Patient: WARD ROPER Facility:?[facility] Patient ID:?[id number] Site Patient ID:?[id number]. Site :?1945 Study:?XRay-Breast Bilateral 3D W/CAD-07/14/2023 8:16:50 AM Ordering Physician:Bel Chapin Final Report: BILATERAL SCREENING MAMMOGRAM WITH COMPUTER-AIDED DETECTION AND TOMOSYNTHESIS TECHNIQUE: CC and MLO views were obtained. These mammographic images have been obtained using full-field digital technique. These mammographic images were interpreted with the benefit of computer-aided detection. Breast Tomosynthesis was used in this interpretation. COMPARISON FILM: 07/10/22, 07/09/21, 07/03/20. FINDINGS: There are scattered areas of fibroglandular density IMPRESSION: There is no radiographic evidence for malignancy. ASSESSMENT: BI-RADS Category 1: Negative RECOMMENDATION: Routine screening mammogram in 1 year. A lay language report of this examination will be provided to the patient. Tres Chavez M.D. Diagnostic Radiologist [email or web address] JACOB/deacon Transcribed: 12:03 p.mShirin worthy/Dictated by: Tres Chavez MD @ 07/26/2023 9:56:00 AM Signed by:?Tres Chavez MD @07/26/2023 12:12:22 PM (Electronic Signature)
== END 2023-07-14 07:32 | disposition home or self-care (01) ==
LOC: MAMMO 07:31
PROVIDERS: PCP Internal Medicine; Visit Provider Internal Medicine
DX: Z12.31 Encounter for screening mammogram for malignant neoplasm of breast (principal)
CPT/HCPCS: 77063; 77067

== ENCOUNTER 2024-05-11 09:11 | Outpatient (CLI) | payer MEDICARE, BC, SELFPAY | END 2024-05-11 09:12 | disposition home or self-care (01) | PROVIDERS: PCP Internal Medicine; Visit Provider Internal Medicine | DX: E78.5 Hyperlipidemia, unspecified (principal); I10 Essential (primary) hypertension; M85.80 Other specified disorders of bone density and structure, unspecified site | CPT/HCPCS: 80053; 80061; 82306 ==

== ENCOUNTER 2024-07-24 10:29 | Outpatient (CLI) | payer MEDICARE, BC, SELFPAY ==
--- NOTE | 2024-07-24 10:45 | CRLHL7_ITS ---
For Patients: As a result of the Century Cures Act, medical imaging exams and procedure reports are released immediately into your electronic medical record. You may view this report before your referring provider. If you have questions, please contact your health care provider. BILATERAL SCREENING MAMMOGRAM WITH COMPUTER-AIDED DETECTION AND TOMOSYNTHESIS TECHNIQUE: CC and MLO views were obtained. These mammographic images have been obtained using full-field digital technique. These mammographic images were interpreted with the benefit of computer-aided detection. Breast Tomosynthesis was used in this interpretation. COMPARISON FILM: 07/14/23, 07/10/22, 07/09/21. FINDINGS: There are scattered areas of fibroglandular density. IMPRESSION: There is no radiographic evidence for malignancy. ASSESSMENT: BI-RADS Category 1: Negative RECOMMENDATION: Routine screening mammogram in 1 year. A lay language report of this examination will be provided to the patient. Tres Chavez M.D. Diagnostic Radiologist [email or web address] SP/Dictated by: Tres Chavez MD @ 07/24/2024 11:23:00 AM (Electronically Signed)
== END 2024-07-24 10:30 | disposition home or self-care (01) ==
LOC: MAMMO 10:30
PROVIDERS: PCP Internal Medicine; Visit Provider Internal Medicine
DX: Z12.31 Encounter for screening mammogram for malignant neoplasm of breast (principal)
CPT/HCPCS: 77063; 77067

== ENCOUNTER 2025-03-22 10:04 | Outpatient (CLI) | payer MEDICARE, BC, SELFPAY ==
--- NOTE | 2025-03-22 12:09 | P.ANES_ITS ---
Anesthesia Charges Start Date/Time Anesthesia Start Date: 03/22/25 Anesthesia Start Time: 11:35 Stop Date/Time Anesthesia Stop Date: 03/22/25 Anesthesia Stop Time: 12:06 Summary Extremes of Age - Over 70 or under 1: HEART NURSE Coding CPT Codes CPT Codes: ANEBlake LWR INTST SCR COLSC - 08574 ([id number]) P2 - PATIENT W/MILD SYST DISEASE, QK - ACCOUNTS RECEIVABLE REPRESENTATIVE 2-4 CNCRNT ANES PROC, QX - HEART NURSE SVC W/ MD MED DIRECTION Additional Codes: Summary - Extremes of Age - Over 70 or under 1: HEART NURSE ([id number])
--- NOTE | 2025-03-22 12:09 | W.ANESCHARGE ---
Anesthesia Charges Start Date/Time Anesthesia Start Date: 03/22/25 Anesthesia Start Time: 11:35 Stop Date/Time Anesthesia Stop Date: 03/22/25 Anesthesia Stop Time: 12:06 Summary Extremes of Age - Over 70 or under 1: ACQUISITION ADVISOR Coding CPT Codes CPT Codes: ANEBlake LWR INTST SCR COLSC - 22592 ([id number]) P2 - PATIENT W/MILD SYST DISEASE, QK - WORM FARM LABORER 2-4 CNCRNT ANES PROC, QX - ACQUISITION ADVISOR SVC W/ MD MED DIRECTION Additional Codes: Summary - Extremes of Age - Over 70 or under 1: ACQUISITION ADVISOR ([id number])
--- NOTE | 2025-03-22 12:52 | P.ANES_ITS ---
Anesthesia Charges Start Date/Time Anesthesia Start Date: 03/22/25 Anesthesia Start Time: 11:35 Stop Date/Time Anesthesia Stop Date: 03/22/25 Anesthesia Stop Time: 12:06 Summary Extremes of Age - Over 70 or under 1: MDA Coding CPT Codes CPT Codes: ANES LWR INTST SCR COLSC - 09614 ([id number]) P2 - PATIENT W/MILD SYST DISEASE, QK - PLAYGROUND SUPERVISOR 2-4 CNCRNT ANES PROC, QX - COMMERCIAL RETOUCHER SVC W/ MD MED DIRECTION Additional Codes: Summary - Extremes of Age - Over 70 or under 1: MDA ([id number])
--- NOTE | 2025-03-22 12:52 | W.ANESCHARGE ---
Anesthesia Charges Start Date/Time Anesthesia Start Date: 03/22/25 Anesthesia Start Time: 11:35 Stop Date/Time Anesthesia Stop Date: 03/22/25 Anesthesia Stop Time: 12:06 Summary Extremes of Age - Over 70 or under 1: MDA Coding CPT Codes CPT Codes: ANES LWR INTST SCR COLSC - 03084 ([id number]) P2 - PATIENT W/MILD SYST DISEASE, QK - GRADES 9 12 TUTOR 2-4 CNCRNT ANES PROC, QX - EQUITY RESEARCH ASSOCIATE SVC W/ MD MED DIRECTION Additional Codes: Summary - Extremes of Age - Over 70 or under 1: MDA ([id number])
== END 2025-03-22 10:05 | disposition home or self-care (01) ==
LOC: OP CLINIC 10:07
PROVIDERS: PCP Internal Medicine; Visit Provider Surgery
DX: Z12.11 Encounter for screening for malignant neoplasm of colon (principal); Z86.0100 Personal history of colon polyps, unspecified
CPT/HCPCS: 00812; 45378; 99100; J2704